=== PATIENT | male | born 1990 | race Caucasian/White ===

== ENCOUNTER 2023-10-06 13:13 | Emergency (ER) | payer OTHER, SELFPAY ==
[2023-10-06 13:17] VITALS: BP 160/119; PULSE 124; TEMP 36.4; O2SAT 99; BMI 32.8
--- NOTE | 2023-10-06 13:22 | PC.NURSE ---
Patient reports spilling hydrolic oil on left forearm. No pain or redness to area, skin pink and warm and intact. Patient reports I just wanted to make sure it didn't get in my pores .
--- NOTE | 2023-10-06 13:24 | XR_ITS ---
The [address] [address] Patient Name: SOPHIA HOWELL MRN: [id number] date: 1990 Sex: M Assigned Patient Location: ER Current Patient Location: ED.MAIN Accession/Order Number: [id number] Exam Date: 10/06/2023 13:45 Report Date: 10/06/2023 15:12 At the request of: ENRIQUE LONDON Procedure: XR forearm LT 2V EXAM: XR forearm LT 2V HISTORY: Direct trauma with hydraulic fluid COMPARISON: None. TECHNIQUE: 2 views of the left forearm. FINDINGS: The bones are intact. The alignment is anatomic. The soft tissues are grossly unremarkable. XR/XR forearm LT 2V IMPRESSION: No acute osseous abnormality. Electronically authenticated by: MATTHEW DAMON Date: 10/06/2023 15:12
--- NOTE | 2023-10-06 13:31 | ED.GENADUL1 ---
HPI HPI - General Adult General Chief complaint: Skin/Abscess/Foreign Body Stated complaint: LT ARM INJURY Time Seen by Provider: 10/06/23 13:14 History of Present Illness HPI narrative: 33-year-old male presents to the emergency department for a chief complaint of injury to the left arm. He was at work this morning and he was working on a hydraulic line and the hydraulic fluid came out under pressure and hit him in his left forearm. He is right-handed. He has no weakness or numbness but he has some pain and some slight swelling to that area. There was no metallic or hard object that hit his arm, it was just the hydraulic fluid. None got on his face. Related Data Home Medications ?Medication ?Instructions ?Recorded ?Confirmed No Known Home Medications 10/06/23 10/06/23 Allergies Allergy/AdvReac Type Severity Reaction Status Date / Time No Known Drug Allergies Allergy Verified 10/06/23 13:17 Opioid HPI Opioid Management Most Recent Opioid Data: No Data to Display Review of Systems ROS Narrative A ten point review of systems is negative except as noted above. Exam Narrative Exam Narrative: Nurses note and vital signs reviewed and patient is not hypoxic. General: The patient appears well and in no apparent distress. Patient is resting comfortably sitting in a chair. Skin: Warm, dry, no pallor noted. There is some mild erythema and percent have some very slight swelling at the left forearm proximally on the extensor side. The skin is completely intact, no break in the skin. Head: Normocephalic, atraumatic Eye: Normal conjunctiva, no drainage Ears, Nose, Mouth, and Throat: oral mucosa is moist. Nares patent. Cardiovascular: Regular Rate and Rhythm Respiratory: Patient is in no distress, no accessory muscle use, lungs are clear to auscultation, no wheezing, rales or rhonchi Back: non-tender GI: Soft and nontender Musculoskeletal: Left shoulder, left elbow, and left wrist have full range of motion. Radial pulse 2+. Fingers have full range of motion. Neurological: A&O, normal speech Psychiatric: Cooperative Constitutional Vital Signs, click to edit/add: Last Vital Signs Temp 97.6 F 10/06/23 13:17 Pulse 114 H 10/06/23 13:57 Resp 18 10/06/23 13:57 BP 158/94 H 10/06/23 13:57 Pulse Ox 98 10/06/23 13:57 O2 Del Method Room Air 10/06/23 13:17 Course Vital Signs Vital signs: Vital Signs Temperature 97.6 F 10/06/23 13:17 Pulse Rate 124 H 10/06/23 13:17 Respiratory Rate 18 10/06/23 13:17 Blood Pressure 160/119 H 10/06/23 13:17 Pulse Oximetry 99 10/06/23 13:17 Oxygen Delivery Method Room Air 10/06/23 13:17 Temperature 97.6 F 10/06/23 13:17 Pulse Rate 114 H 10/06/23 13:57 Respiratory Rate 18 10/06/23 13:57 Blood Pressure 158/94 H 10/06/23 13:57 Pulse Oximetry 98 10/06/23 13:57 Oxygen Delivery Method Room Air 10/06/23 13:17 Medical Decision Making MDM Narrative Medical decision making narrative: X-rays are negative. Physical examination shows intact skin. I have no clinical suspicion of subcutaneous chemical exposure. He was reassured. Treatment diagnosis and follow-up were discussed thoroughly. Differential Diagnosis Differential Diagnosis: Contusion, chemical dermatitis Imaging Data Forearm x-ray: Radiologist's impression: ITS Impressions Forearm X-Ray 10/06/23 13:24 IMPRESSION: No acute osseous abnormality. Electronically authenticated by: MATTHEW DAMON Date: 10/06/2023 15:12 Discharge Plan Discharge Stand Alone Forms: Portal Instructions Chief Complaint: Skin/Abscess/Foreign Body Clinical Impression: Chemical exposure Patient Disposition: Home, Self-Care Time of Disposition Decision: 15:23 Condition: Good Mode of Transportation: Private Vehicle Prescriptions / Home Meds: No Action No Known Home Medications Print Language: Cypriot Instructions: Dermatitis (ED) Referrals: Physician,Non-Staff, MD [Physician] - 1 week
[2023-10-06 13:57] VITALS: BP 158/94; PULSE 114; O2SAT 98
== END 2023-10-06 15:34 | disposition home or self-care (01) ==
PROVIDERS: Emergency Provider Emergency Medicine; Family Provider Family Medicine; PCP Family Medicine
DX: Z77.098 Contact with and (suspected) exposure to other hazardous, chiefly nonmedicinal, chemicals (principal)
CPT/HCPCS: 73090; 99283

== ENCOUNTER 2024-02-05 13:28 | Outpatient (OUT) | payer BC, SELFPAY ==
--- OUTSIDE RECORDS SUMMARY | 2024-02-05 13:36 | XMS_ITS | CCD ---
Author Organization [facility] Care Team Providers Care Vision Rehabilitation Therapist Name Role Phone DMITRIY ARANGO Primary Care Physician Ahsan PATEL Attending Unavailable Ahsan PATEL Admitting Unavailable DMITRIY ARANGO Attending Unavailable DMITRIY ARANGO Referring Unavailable DMITRIY ARANGO Attending Unavailable DMITRIY ARANGO Referring Unavailable Dmitriy Arango DO Primary Care Provider Dmitriy Arango DO Unavailable [phone] Lydia Leung Attending Unavailable Unavailable Unavailable Unavailable Medications Current Medications Medication Drug Class(es) Dates Sig (Normalized) Sig (Original) cephalexin 500 mg oral capsule (3 sources) Cephalosporin Antibacterial Start: 12-26-2021 Keflex 500 mg Cap See Instructions, Take 1 tablet 1 day prior to procedure, and then 1 tab day of procedure after procedure, # 10 tab(s), Refills(s) 0, Pharmacy: [facility] [id number], 182, cm, 12/26/21 10:20:00 EDT, Height/Length Dosing, 107.3, kg, 12/26/21 10:20:0... Start Date: 12/26/21 Status: Ordered lisinopril 20 mg oral tablet (7 sources) Angiotensin Converting Enzyme Inhibitor Start: 01-31-2024 take 1 tablet by mouth once daily lisinopril 20 mg Tab = 1 tab(s), Oral, Daily, Refills(s) 0 Start Date: 01/31/24 Status: Ordered Start: 12-26-2021 take 1 tablet by deisy th once daily lisinopril 20 mg Tab 20 mg = 1 tab(s), Oral, Daily Start Date: 12/26/21 Status: Ordered Start: 02-12-2018 take 20 mg by mouth once daily Lisinopril Active 20 MG Oral Daily February 12, 2018 12:56pm Completed/Discontinued Medications Medication Drug Class(es) Dates Sig (Normalized) Sig (Original) permethrin 50 mg/ml topical cream (2 sources) Pyrethroid Start: 02-08-2023 End: 01-15-2024 permethrin (Elimite) 5 % cream Indications: Rash Put on at night wash off in the morning 60 g 02/08/2023 01/15/2024 Discontinued (Therapy completed) Problems Problem Classification Problem Date Documented Da te Episodic/Chronic Adjustment disorders (2 sources) Stress; Translations: [Reaction to severe stress, unspecified] Onset: 02-08-2023 02-08-2023 Chronic Contraceptive and procreative management (9 sources) Sterilization requested; Translations: [Encounter for sterilization] Onset: 12-26-2021 Episodic E Codes: Natural/environment (2 sources) Tick bite; Translations: [Bitten or stung by nonvenomous insect and other nonvenomous arthropods, sequela] 01-15-2024 Episodic Essential hypertension (10 sources) Hypertensive disorder; Translations: [Essential hypertension] Onset: 08-08-2022 12-26-2021 Chronic Gastrointestinal hemorrhage (3 sources) Hematochezia; Translations: [ melena] Onset: 01-15-2024 01-15-2024 Episodic Open wounds of extremities (1 source) Laceration of thigh; Translations: [Laceration without foreign body, right thigh, initial encounter] Onset: 05-29-2021 Episodic Other male genital disorders (2 sources) Pain in testicle; Translations: [Left testicular pain] Onset: 09-26-2022 Episodic Other male genital disorders (5 sources) Pain of left testicle; Translations: [Left testicular pain] Onset: 02-08-2023 09-26-2022 Episodic Other nutritional; endocrine; and metabolic disorders (2 sources) Body mass index 30+ - obesity; Translations: [Obesity, unspecified] 01-15-2024 Chronic Other upper respiratory disease (2 sources) Seasonal allergy; Translations: [Other seasonal allergic rhinitis] Onset: 08-08-2022 08-08-2022 Chronic Results Test Name Value Interpretation Reference Range Facility Ambulatory Visit Summaryon 1 04-01-2023 Ambulatory Visit Summary Ambulatory Visit Summary DAVID PELLETIER :1990 Visit Date:01/31/2024 Ambulatory Visit Instructions Your Diagnosis Left testicular pain Testicular pain Tests Performed US Scrotum (Contents) -- Results Pending -- Please visit your patient portal for your results or contact your primary care physician. Your Care Team Attending Physician - Lydia Ho Primary Care Physician - DMITRIY ARANGO DO This Is Your Medications List Contact prescribing physician if questions or concerns lisinopril (lisinopril 20 mg Tab) Procedures Performed Vasectomy (04/27/2022), Colonoscopy. Discharge Vitals Heart Rate (Peripheral) 72 Blood Pressure 146/82 Height 182 cm Height 72 in Weight 107.3 kg Weight 236.556 lb BMI 32.39 Medications What How Much When Instructions Unchanged lisinopril (lisinopril 20 mg Tab) 1 Tablets By Mouth Every day Contact prescribing physician if questions or concerns Allergies No Known Allergies Problems Ongoing - Any problem that you are currently receiving treatment for. Encounter for vasectomy Hypertension Left testicular pain Vasectomy status Patient Survey You may receive a survey via text or e-mail asking about your office visit. Please share your experience with us by completing your survey. We appreciate your feedback and thank you for choosing us for your care. [facility] Urology Office/Clinic Noteon 01-31-2024 Urology Office/Clinic Note Urology Office/Clinic Note HPI Staff David is a 33 yo male [facility] pt here today due to continuing testicular pain. Was last seen IO by [facility] on 09/26/22 due to Lt sided testicular pain PO a Vasectomy from 04/27/22 by [facility]. pt also having pain on right side today Did call pt to see if he wanted to have Scrotal US done and have this appt rs as the US was recommended in previous office note, pt states that he would like to keep his appt. Pt asked what the Scrotal Us could possibly find, advised him that it could tell us if there was any fluid build up, varicoceles, hydroceles, or anything like that. Pt stated that when he has the pain he can feel a kind of bump and that he thinks it may be a cyst. Pt stated that he would like to have an exam done to determine if he truly needs to have the Scrotal US or not. Dysuria: _no Incomplete bladder emptying: _no Hematuria: _no Frequency: _no Urgency: _no Nocturia: _no Stream: _normal Leaking: _no Post void dripping: _no Wearing pads/ Depends: _no Urge incontinence: _no Stress incontinence: _no Incontinence without Sensory Awareness: _no Abdominal pain: _no Flank pain: _no Sexual complaints: _ History of Present Illness Staff HPI reviewed and agree. Review of Systems PHQ Score Initial Depression Screen Score: 0 SCORE no fever, chills, malaise, myalgia. no rash/lesions. no chest pain, palpitations, or SOB. no abdominal pain, nausea, vomiting. no unilateral calf swelling, redness, pain Physical Exam Vitals & Measurements HR: 72(Peripheral) BP: 146/82 HT: 72 in HT: 182 cm WT: 107.3 kg WT: 236.556 lb BMI: 32.39 Genitourinary: abnormal scrotum, L cyst-like nodule noted at inferior end of scrotum normal testes, normal urethra, normal epididymis, normal vas deferens/spermatic cord. Flank Pain: none. Penis: normal shaft, normal glans. Assessment/Plan [facility] pt. 1. Left testicular pain (N50.812: Left testicular pain) S/P Vasectomy 04/27/[address] Luna 12/17/23 semen analysis shows no sperm UA today negative for blood or infection Pt states he had left testicular pain that began while he was working. Pt was seen for the same issue September 2022. Pt denies any specific injury/movement when he noticed pain. Pt also reports a hard nodule in his L scrotum. Pt denies urination or ejaculation concerns. Denies gross hematuria. Physical exam today as noted above, no tenderness noted. Advised pt to take anti-inflammatory medications and try taking baths. Discussed completing scrotal US with patient, pt agreeable. Pt knows to call our office for any severe pain, hematuria, blood in semen, fevers or difficulty urinating. -Scrotal US soon at [facility], will call patient with results -NSAIDs, baths, frequent ejaculations -If scrotal US normal, f/u PRN Ordered: E&M of Est. Patient Low 20-29 Min [id number] Urnls Dip Stick Auto w/o Microscopy POC [id number] Follow-up With When Contact Information Lydia Ho, URL Only if needed Additional Instructions: Patient Education Testicular Self-Exam Problem List/Past Medical History Ongoing Encounter for vasectomy Hypertension Left testicular pain Vasectomy status Historical No qualifying data Procedure/Surgical History Vasectomy (04/27/2022), Colonoscopy. Medications lisinopril 20 mg Tab, 1 tab(s), Oral, Daily Allergies No Known Allergies Social History Alcohol Current. Beer. 3-5 times per week., 01/31/2024 Substance Abuse Never., 01/31/2024 Tobacco Former smoker, quit more than 30 days ago Tobacco Use:., 01/31/2024 Family History Hypertension: Grandparent. Immunizations Vaccine Date Status Comments SARS-CoV-2 mRNA (totysonnameran 5y-11y) vac - Not Given Patient Refuses diphtheria/pertussis , acel/tetanus adult 05/09/2019 Recorded measles/mumps/rubell a virus vaccine 10/30/2002 Recorded hepatitis B pediatric vaccine 10/30/2002 Recorded poliovirus vaccine, inactivated 03/31/1992 Recorded measles/mumps/rubell a virus vaccine 03/31/1992 Recorded Hib, unspecified formulation 03/31/1992 Recorded Lab Results Ambulatory Point of Care Results Bilirubin Urine Dipstick: Negative (01/31/24 15:10:00) Blood Urine Dipstick: Negative (01/31/24 15:10:00) Glucose Urine Dipstick: Negative (01/31/24 15:10:00) Ketones Urine Dipstick: Negative (01/31/24 15:10:00) Leukocytes Urine Dipstick: Negative (01/31/24 15:10:00) Nitrite Urine Dipstick: Negative (01/31/24 15:10:00) Specific [place] Urine Dipstick: 1.025 (01/31/24 15:10:00) Urine Appearance Urine Dipstick: Clear (01/31/24 15:10:00) Urine Color Urine Dipstick: Yellow (01/31/24 15:10:00) Urobilinogen Urine Dipstick: Normal 0.2-1 EU/dl (01/31/24 15:10:00) pH Urine Dipstick: 6.5 (01/31/24 15:10:00) Normal [facility] Comment on above: Result Comment: Elec tronically Signed By: Lydia Ho.brian\Date and Time Signed: 01/31/24 15:23 EST Semen Analysis PostVason Odalis/Transport Prob No Problems Normal Fish er [facility] Comment on above: Performed By: #### 1 [id number] #### [facility] [address] [id number] Collect. Meth Masturbation Normal [facility] Comment on above: Performed By: #### 1 [id number] #### [facility] [address] [id number] Days Abstained See comment Invalid Interpretation Code 2-5 [facility] Comment on above: Result Comment: Negra ent wrote year plus on days of abstinence section Performed By: #### 1 [id number] #### [facility] [address] [place] [address] Post Vas Screen No Sperm Seen Normal <=0 [facility] Comment on above: Result Comment: A Co ncentration Technique is used to confirm any semen which is azospermic (no sperm seen). Performed By: #### 1 [id number] #### [facility] [address] [place] [address] Spec. Container Steril Container Normal [facility] Comment on above: Performed By: #### 1 [id number] #### [facility] [address] [place] [address] Spec. Temp 22 DegC Normal 20-37 [facility] Comment on above: Performed By: #### 1 [id number] #### [facility] [address] [place] [address] Sperm Morphon 12-31-2023 Sperm Morph No sperms identified (centrifuge concentration technique performed). Invalid Interpretation Code [facility] Comment on above: Order Comment: Order Added by Discern Expert. Performed By: #### 2 [id number] #### [facility] [address] [place] [address] Sperm Morph Sperm Morph No sperms identified (centrifuge concentration technique performed). Invalid Interpretation Code [facility] Comment on above: Other Comment: Order Added by Discern Expert. Complete Blood Count with Au to Diffon 06-22-2021 Basophils (Bld) [#/Vol] 0.03 10*3/uL Normal 0.00-0.20 [facility] Comment on above: Performed By: #### L IPD, CMP, CBCAD #### [facility] [address], [place] [id number] Basophils/100 WBC (Bld) 0.4 % Normal [facility] Comment on above: Performed By: #### L IPD, CMP, CBCAD #### [facility] [address], [place] [id number] Eosinophils (Bld) [#/Vol] 0.14 10*3/uL Normal 0.02-0.50 [facility] Comment on above: Performed By: #### L IPD, CMP, CBCAD #### [facility] [address], [place] [id number] Eosinophils/100 WBC (Bld) 1.8 % Normal [facility] Comment on above: Performed By: #### L IPD, CMP, CBCAD #### [facility] [address], [place] [id number] Erythrocyte distribution width (RBC) [Ratio] 12.5 % Normal 11.0-15.0 [facility] Comment on above: Performed By: #### L IPD, CMP, CBCAD #### [facility] [address], [place] [id number] Hematocrit (Bld) [Volume fraction] 43.6 % Normal 38.5-50.0 [facility] Comment on above: Performed By: #### L IPD, CMP, CBCAD #### [facility] [address], [place] [id number] Hemoglobin (Bld) [Mass/Vol] 14.8 g/dL Normal 13.0-17.1 [facility] Comment on above: Performed By: #### L IPD, CMP, CBCAD #### [facility] [address], [place] [id number] Lymphocytes (Bld) [#/Vol] 2.6 10*3/uL Normal 0.9-3.9 [facility] Comment on above: Performed By: #### L IPD, CMP, CBCAD #### [facility] [address], [place] [id number] Lymphocytes/100 WBC (Bld) 33.8 % Normal [facility] Comment on above: Performed By: #### L IPD, CMP, CBCAD #### [facility] [address], [place] [id number] MCH (RBC) [Entitic mass] 30.6 pg Normal 27.0-33.0 [facility] Comment on above: Performed By: #### L IPD, CMP, CBCAD #### [facility] [address], [place] [id number] MCHC (RBC) [Mass/Vol] 33.9 g/dL Normal 32.0-36.0 [facility] Comment on above: Performed By: #### L IPD, CMP, CBCAD #### [facility] [address], [place] [id number] MCV (RBC) [Entitic vol] 90 fL Normal 80-100 [facility] Comment on above: Performed By: #### L IPD, CMP, CBCAD #### [facility] [address], [place] [id number] Monocytes (Bld) [#/Vol] 0.3 10*3/uL Normal 0.2-0.9 [facility] Comment on above: Performed By: #### L IPD, CMP, CBCAD #### [facility] [address], [place] [id number] Monocytes/100 WBC (Bld) 4.3 % Normal [facility] Comment on above: Performed By: #### L IPD, CMP, CBCAD #### [facility] [address], [place] [id number] Neutrophils (Bld) [#/Vol] 4.4 10*3/uL Normal 1.5-7.8 [facility] Comment on above: Performed By: #### L IPD, CMP, CBCAD #### [facility] [address], [place] [id number] Neutrophils/100 WBC (Bld) 58.4 % Normal [facility] Comment on above: Performed By: #### L IPD, CMP, CBCAD #### [facility] [address], [place] [id number] Platelet mean volume (Bld) [Entitic vol] 8.50 fL Normal 7.50-12.50 [facility] Comment on above: Performed By: #### L IPD, CMP, CBCAD #### [facility] [address], [place] [id number] Platelets (Bld) [#/Vol] 318 10*3/uL Normal 140-400 [facility] Comment on above: Performed By: #### L IPD, CMP, CBCAD #### [facility] [address], [place] [id number] RBC (Bld) [#/Vol] 4.83 10*6/uL Normal 4.20-5.80 [facility] Comment on above: Performed By: #### L IPD, CMP, CBCAD #### [facility] [address], [place] [id number] RDW-SD 41.1 fL Normal 37.0-50.0 [facility] Comment on above: Performed By: #### L IPD, CMP, CBCAD #### [facility] [address], [place] [id number] WBC (Bld) [#/Vol] 7.6 10*3/uL Normal 3.8-11.0 [facility] Comment on above: Performed By: #### L IPD, CMP, CBCAD #### [facility] [address], [place] [id number] Comprehensive Metabolic Pane joann 06-22-2021 Albumin [Mass/Vol] 4.9 g/dL Normal 3.6-5.1 [facility] Comment on above: Performed By: #### L IPD, CMP, CBCAD #### [facility] [address], [place] [id number] Albumin/Globulin [Mass ratio] 1.9 {ratio} Normal 1.0-2.5 [facility] Comment on above: Performed By: #### L IPD, CMP, CBCAD #### [facility] [address] [facility] [place] [id number] ALP [Catalytic activity/Vol] 89 U/L Normal 40-129 [facility] Comment on above: Performed By: #### L IPD, CMP, CBCAD #### [facility] [address] [facility] [place] [id number] ALT [Catalytic activity/Vol] 57 U/L High 9-46 [facility] Comment on above: Result Comment: 02/09 Female reference range changed. Performed By: #### L IPD, CMP, CBCAD #### [facility] [address] [facility] [place] [id number] Anion gap [Moles/Vol] 18 mmol/L Normal 12-20 [facility] Comment on above: Result Comment: Effe ctive 03/17/2019 reference range changed. Performed By: #### L IPD, CMP, CBCAD #### [facility] [address], [place] [id number] AST [Catalytic activity/Vol] 33 U/L Normal 10-40 [facility] Comment on above: Performed By: #### L IPD, CMP, CBCAD #### [facility] [address], [place] [id number] Bilirubin [Mass/Vol] 0.54 mg/dL Normal 0.30-1.20 [facility] Comment on above: Performed By: #### L IPD, CMP, CBCAD #### [facility] [address], [place] [id number] BUN/CREA 15 Ratio Normal 6-22 [facility] Comment on above: Performed By: #### L IPD, CMP, CBCAD #### [facility] [address] [facility] [place] [id number] Calcium [Mass/Vol] 9.8 mg/dL Normal 8.6-10.2 [facility] Comment on above: Performed By: #### L IPD, CMP, CBCAD #### [facility] [address] [facility] [place] [id number] Chloride [Moles/Vol] 102 mmol/L Normal 98-107 [facility] Comment on above: Performed By: #### L IPD, CMP, CBCAD #### [facility] [address], [place] [id number] CO2 [Moles/Vol] 22 mmol/L Normal 20-31 [facility] Comment on above: Performed By: #### L IPD, CMP, CBCAD #### [facility] [address], [place] [id number] Creatinine [Mass/Vol] 0.9 mg/dL Normal 0.7-1.4 [facility] Comment on above: Performed By: #### L IPD, CMP, CBCAD #### [facility] [address], [place] [id number] eGFRAA 124 mL/min/1.73m2 Normal >60 [facility] Comment on above: Performed By: #### L IPD, CMP, CBCAD #### [facility] [address], [place] [id number] eGFRNAA 102 mL/min/1.73m2 Normal >60 [facility] Comment on above: Performed By: #### L LYUBOV CMP, CBCAD #### [facility] [address], [place] [id number] Globulin (S) [Mass/Vol] 2.6 g/dL Normal 1.9-3.7 [facility] Comment on above: Performed By: #### L IPD, CMP, CBCAD #### [facility] [address], [place] [id number] Glucose [Mass/Vol] 92 mg/dL Normal 65-99 [facility] Comment on above: Result Comment: For FASTING Glucose --- ADA reference ranges: Normal 65-99 mg/dl Prediabetes 100-125 Diabetes >/= 126 Performed By: #### L IPD, CMP, CBCAD #### [facility] [address], [place] [id number] Potassium [Moles/Vol] 4.3 mmol/L Normal 3.5-5.5 [facility] Comment on above: Performed By: #### L IPD, CMP, CBCAD #### [facility] [address] [facility] [place] [id number] Protein [Mass/Vol] 7.5 g/dL Normal 6.1-8.1 [facility] [place] [facility] Comment on above: Performed By: #### L IPD, CMP, CBCAD #### [facility] [address], [place] [id number] Sodium [Moles/Vol] 137 mmol/L Normal 135-146 [facility] [place] [facility] Comment on above: Performed By: #### L IPD, CMP, CBCAD #### [facility] [address], [place] [id number] Urea nitrogen [Mass/Vol] 13 mg/dL Normal 7-25 [facility] Comment on above: Performed By: #### L IPD, CMP, CBCAD #### [facility] [address], [place] [id number] Lipid Panelon 06-22-2021 Cholesterol [Mass/Vol] 191 mg/dL Normal 125-200 [facility] Comment on above: Result Comment: Low risk < 200mg/dL Borderline risk 201-239 mg/dl High risk > or equal to 240 Performed By: #### L IPD, CMP, CBCAD #### [facility] [address], [place] [id number] Cholesterol in HDL [Mass/Vol] 35 mg/dL Low >40 [facility] Comment on above: Result Comment: High Cardiovascular Risk HDL <40 mg/dL Low Cardiovascular Risk HDL > or equal to 60 mg/dl Performed By: #### L IPD, CMP, CBCAD #### [facility] [address], [place] [id number] Cholesterol in LDL [Mass/Vol] 126 mg/dL Normal [facility] Comment on above: Result Comment: LDL ATP III CLASSIFICATION LDL less than 100 mg/dl Optimal LDL 100-129 mg/dl Near or above optimal LDL 130-159 Borderline high LDL 160-189 High LDL greater than 189 mg/dl Very High Performed By: #### L IPD, CMP, CBCAD #### [facility] [address], [place] [id number] Cholesterol in VLDL [Mass/Vol] 30 mg/dL Normal [facility] Comment on above: Performed By: #### L IPD, CMP, CBCAD #### [facility] [address], [place] [id number] Cholesterol.total/C holesterol in HDL [Mass ratio] 5 {ratio} Normal [facility] Comment on above: Performed By: #### L IPD, CMP, CBCAD #### [facility] [address], [place] [id number] Triglyceride [Mass/Vol] 149 mg/dL Normal 30-150 [facility] Comment on above: Result Comment: TRIG ATPIII CLASSIFICATIONS TRIG less than 150 mg/dl Normal TRIG 150-199 mg/dl Borderline High TRIG 200-500 mg/dl High TRIG greather than 500 mg/dl Very High Performed By: #### L IPD, CMP, CBCAD #### [facility] [address], [place] [id number] Microalbumin (with Creat)on 06-22-2021 mALB <1.2 Low [facility] Comment on above: Result Comment: Unab le to calculate mALB/Crea ratio, mALB is <1.2 mg/dL mALB reference range not established. Performed By: #### m ALBC #### [facility] [address], [place] [id number] UCREA 62 mg/dL Normal 39-259 [facility] Comment on above: Performed By: #### m ALBC #### [facility] [address], [place] [id number] Coding Summaryon 11-29-2018 Coding Summary CODING DATE: 11/29/2018 [facility] STATUS: Home PAYOR: Workers Compensation ADMIT DX: REASON FOR VISIT DX: T23.152D Burn of first degree of left palm, subsequent encounter FINAL DX: PRINCIPAL: T23.152D Burn of first degree of left palm, subsequent encounter SECONDARY: PYMT PROC APC STAT DESCRIPTION DOCTOR NAME DATE NOTE: The code number assigned matches the documented diagnosis and / or procedure in the patient's chart. However, the narrative phrase printed from the coding software may appear abbreviated, or result in slightly different terminology. Coded By: Maren Lizama Date Saved: 11/29/2018 08:39 am [facility] Discharge Instructionson Discharge Instructions [id number] #[email or web address] [facility] ED Clinical Summaryon 2018 ED Clinical Summary [facility] ? Urgent Care [address] [place] [address] Clinical Summary PERSON INFORMATION Name: DAVID PELLETIER Age: 28 Years Sex: MALE : 1990 MRN: Acct#: Visit Reason: Screening - general; BWC FOLLOW-UP/LEFT HAND PAINY Arrival: 11/27/2018 12:45:57 Discharge: 11/27/2018 13:06:00 LOS: 000 00:21 Check In: 11/27/2018 12:45:57 Checkout: 11/27/2018 13:06:00 Address: [address] [place] [id number] PCP: DMITRIY ARANGO PROVIDER INFORMATION Provider Role Assigned Unassigned Noah Alvarado PA-C ED PA 11/27/2018 12:50:12 Blanka Pang [employer] [facility] Nurse 11/27/2018 12:51:12 VITALS INFORMATION Vital Sign Triage Latest Temperature Tympanic Temperature Temporal Artery Pulse Rate O2 Sat Respiratory Rate Blood Pressure /80 mmHg /80 mmHg MEDICAL INFORMATION Medications Given: Allergy Information: No known allergies PHYSICIAN DOCUMENTATION DISCHARGE INFORMATION: Discharge Disposition: Home Discharge Location: Home PATIENT EDUCATION INFORMATION Instructions: Follow-Up: With: Address: When: Return to this practice , only if needed DIAGNOSIS: Superficial burn of palm of left hand Patient Understands: Yes - Patient/family/careg iver verbalizes understanding of instructions given Comment: Normal [facility] ED Note - Physicianon 2018 ED Note - Physician Patient: DAVID PELLETIER Age: 28 years Sex: MALE : 1990 Associated Diagnoses: Superficial burn of palm of left hand Author: Noah Alvarado PA-C History of Present Illness OCCUPATIONAL HEALTH FOLLOW-UP Date of injury: 11/14/2018 Claim #: [id number] Employer: [employer] Mechanism of Injury: Diagnosis: Burn, Left hand This is a 28 year old here today in follow-up for his work related injury. 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 He was seen here shortly after it had happened. Td was up to date. He was treated with Silvadene cream. 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 It is healing as expected. He still had an intact blister to his palm last week, today there is still skin over it, but blister is not fluid filled, healing without signs of infection. The finger tips are completely healed. No fevers, chills or malaise. No other skin rashes or lesions. No joint pains or myalgias. No numbness, tingling or weakness. There are no other associated symptoms. Nothing makes the symptoms better or worse. Symptoms are described as sudden onset, moderate in nature and persisting. Health Status Allergies: Allergic Reactions (Selected) No known allergies. Medications: (Selected) Prescriptions Prescribed Silvadene 1% topical cream: 1 jared, TOP, BID, Apply to left palm., 50 gm, 0 Refill(s) Documented Medications Documented lisinopril 20 mg oral tablet: 20 mg = 1 tab(s), PO, Daily, 0 Refill(s). Past Medical/ Family/ Social History Medical history: No active or resolved past medical history items have been selected or recorded.. Surgical history: No active procedure history items have been selected or recorded.. Family history: No family history items have been selected or recorded.. Social history: Social & Psychosocial Habits Substance Abuse 11/14/2018 Substance use: Never Tobacco 11/19/2018 Number used per day: States only occassionally . Problem list: No qualifying data available . Physical Examination Vital Signs Vital Signs 11/27/2018 12:45 EDT Temperature Oral 36.4 DegC Apical Heart Rate 80 bpm Respiratory Rate 16 br/min Systolic Blood Pressure 120 mmHg Diastolic Blood Pressure 80 mmHg . GENERAL: Awake, alert and oriented to person, place and situation. Well nourished, well developed, non toxic, NAD. EXTREMITIES: No bony TTP, no cyanosis, clubbing or edema. Good muscle tone, full ROM without difficulty. Brisk cap refill distally, radial pulses 2+ bilaterally. SKIN: There is skin overlying the former blister to his mid palm on the left, no further erythema to the finger tips, with otherwise normal inspection, no visualized rash. NEUROLOGIC: Light touch sensation in tact, strength 5/5 in bilateral upper extremities. Normal mentation. No focal neurological deficits appreciated. Medical Decision Making Burn healed, may return to full duty work. Return with new, or worsening symptoms, or symptoms failing to improve as expected and the patient voiced their understanding. Questions answered. Follow-up here only as needed. Impression and Plan Diagnosis Superficial burn of palm of left hand ([id number] T23.152A, Discharge, Medical) Plan Condition: Stable. Disposition: Discharged: Time 11/27/2018 13:03:00, to home. Follow up with: ; Return to this practice , only if needed. Counseled: Patient, Regarding diagnosis, Regarding treatment plan, Patient indicated understanding of instructions. [Electronically Signed on: 11/27/2018 13:12 EDT] Noah Alvarado PA-C [Verified on: 11/27/2018 13:12 EDT] Noah Alvarado PA-C Normal [facility] ED Patient Summaryon 019 ED Patient Summary [facility] ? Urgent Care [address] [place] [address] PATIENT DISCHARGE INSTRUCTIONS Patient Information Name: DAVID PELLETIER Age: 28 Years Date of : 1990 Reason For Visit: Screening - general; [facility] FOLLOW-UP/LEFT HAND PAINY Arrival Time: 11/27/2018 12:45:57 Primary Care Physician: DMITRIY ARANGO Attending Physician: Noah Alvarado PA-C Comment: Patient Education With: Address: When: Return to this practice , only if needed Medication Information: The exam and treatment you received today in the [facility] Emergency Department were for an urgent problem and are not intended as complete care. It is important for you to follow up with a doctor, nurse practitioner, or physician?s retail administrative assistant for ongoing care. If your symptoms become worse or you do not improve as expected and you are unable to reach your usual health care provider, you should return to the Emergency Department, we are available 24 hours a day. For those patients who have received Radiology results, the interpretation of your X-ray as given to you by our Emergency Department physician is only a preliminary report. The Radiologist will review your films and if there is a change in the diagnosis you will be notified by phone. Please make sure you have provided a working phone number so we can reach you if necessary. In the event that you had a lab culture while you were a patient in the Emergency Department, you will be notified by phone if there is a need to change your antibiotic. Please make sure you have provided a working phone number so we can reach you if necessary. [facility] Emergency Department has provided you with a complete list of medications post discharge. Please inform your hall supervisor/provider of your visit and for further instruction on these medications. Any specific questions regarding your chronic medications and dosages should be discussed with your primary care physician(s) and/or pharmacist. Medications to Continue That Have Not Changed Other Medications lisinopril (lisinopril 20 mg oral tablet) 1 tab(s) Oral every day. silver sulfADIAZINE topical (Silvadene 1% topical cream) 1 jared Topical 2 times a day. Apply to left palm.. Refills: 0. Visit Information Visit Diagnosis: Diagnoses This Visit Screening - general ([id number]) Superficial burn of palm of left hand (T23.152A) If you received any narcotics, sedation, or any other medication that causes drowsiness for the next 24 hours, unless otherwise directed: ? Do not drive a car. ? Do not operate machinery such as power tools, lawn mowers, drills, sewing machines, or stoves ? Avoid alcoholic beverages and drugs for allergies, nerves, or sleep ? Do not make important personal or business decisions or sign any legal documents Reason for Visit: [facility] follow up left hand burn improving no blister is changing jobs Allergies: Substance Reaction Symptoms Type Comments No known allergies Drug Vital Signs: Vitals and Measurements this Visit (last charted value for your 11/27/2018 visit) Vital Signs This Visit Temperature Oral: 36.4 DegC Apical Heart Rate: 80 bpm Respiratory Rate: 16 br/min Systolic Blood Pressure: 120 mmHg Diastolic Blood Pressure: 80 mmHg Measurements This Visit Height: 182.88 cm Height/Length Dosin.880 cm Height/Length Estimated: 182.880 cm Weight: 94.8 kg Weight Dosin.800 kg Weight Estimated: 94.800 kg Body Mass Index: 28.34 kg/m2 Problems List: Problem Onset Comments No Problems found Major Tests and Procedures: The following procedures and tests were performed during your ED visit. Laboratory Radiology Cardiology Viruses or Bacteria What?s got you sick? Antibiotics only treat bacterial infections. Viral illnesses cannot be treated with antibiotics. When an antibiotic is not prescribed, ask your healthcare professional for tips on how to relieve symptoms and feel better. Usual Cause Illness Viruses Bacteria Antibiotic Needed Cold/Runny Nose NO Bronchitis/Chest Cold (in otherwise healthy children and adults) NO Whooping Cough Yes Flu NO Strep Throat Yes Sore Throat (except strep) NO Fluid in the middle ear (otitis media with effusion) NO Urinary Tract Infection Yes Antibiotics Aren?t Always the Answer www.cdc.gov/getsmart GET SMART Know When Antibiotics Work U.S. Department of Health and Human Services Centers for Disease Control and Prevention November 2013 [facility] Patient Handouton 11-27-2018 Patient Handout Patient Education Materials Follows: [facility] Urgent Care Rec[facility] 019 Urgent Care Record [facility] ? Urgent Care [address] [place] [address] PATIENT DISCHARGE INSTRUCTIONS Patient Information Name: DAVID PELLETIER Age: 28 Years Date of : 1990 Reason For Visit: Screening - general; [facility] FOLLOW-UP/LEFT HAND PAINY Arrival Time: 11/27/2018 12:45:57 Primary Care Physician: DMITRIY ARANGO Attending Physician: Noah Alvarado PA-C Comment: Visit Diagnosis: Diagnoses This Visit Screening - general ([id number]) Superficial burn of palm of left hand (T23.152A) If you received any narcotics, sedation, or any other medication that causes drowsiness for the next 24 hours, unless otherwise directed: ? Do not drive a car. ? Do not operate machinery such as power tools, lawn mowers, drills, sewing machines, or stoves ? Avoid alcoholic beverages and drugs for allergies, nerves, or sleep ? Do not make important personal or business decisions or sign any legal documents With: Address: When: Return to this practice , only if needed Medication Information: The exam and treatment you received today in the [facility] were for an urgent problem and are not intended as complete care. It is important for you to follow up with a doctor, nurse practitioner, or physician?s retail administrative assistant for ongoing care. If your symptoms become worse or you do not improve as expected and you are unable to reach your usual health care provider, you should return to the Emergency Department, we are available 24 hours a day. For those patients who have received Radiology results, the interpretation of your X-ray as given to you by our Urgent Care physician is only a preliminary report. The Radiologist will review your films and if there is a change in the diagnosis you will be notified by phone. Please make sure you have provided a working phone number so we can reach you if necessary. In the event that you had a lab culture while you were a patient in the Urgent Care, you will be notified by phone if there is a need to change your antibiotic. Please make sure you have provided a working phone number so we can reach you if necessary. [facility] has provided you with a complete list of medications post discharge. Please inform your hall supervisor/provider of your visit and for further instruction on these medications. Any specific questions regarding your chronic medications and dosages should be discussed with your primary care physician(s) and/or pharmacist. Medications to Continue That Have Not Changed Other Medications lisinopril (lisinopril 20 mg oral tablet) 1 tab(s) Oral every day. silver sulfADIAZINE topical (Silvadene 1% topical cream) 1 jared Topical 2 times a day. Apply to left palm.. Refills: 0. Visit Information Allergies: Substance Reaction Symptoms Type Comments No known allergies Drug Vital Signs: Vitals and Measurements this Visit (last charted value for your 11/27/2018 visit) Vital Signs This Visit Temperature Oral: 36.4 DegC Apical Heart Rate: 80 bpm Respiratory Rate: 16 br/min Systolic Blood Pressure: 120 mmHg Diastolic Blood Pressure: 80 mmHg Measurements This Visit Height: 182.88 cm Height/Length Dosin.880 cm Height/Length Estimated: 182.880 cm Weight: 94.8 kg Weight Dosin.800 kg Weight Estimated: 94.800 kg Body Mass Index: 28.34 kg/m2 Problems List: Problem Onset Comments No Problems found Patient Education Viruses or Bacteria What?s got you sick? Antibiotics only treat bacterial infections. Viral illnesses cannot be treated with antibiotics. When an antibiotic is not prescribed, ask your healthcare professional for tips on how to relieve symptoms and feel better. Usual Cause Illness Viruses Bacteria Antibiotic Needed Cold/Runny Nose NO Bronchitis/Chest Cold (in otherwise healthy children and adults) NO Whooping Cough Yes Flu NO Strep Throat Yes Sore Throat (except strep) NO Fluid in the middle ear (otitis media with effusion) NO Urinary Tract Infection Yes Antibiotics Aren?t Always the Answer www.cdc.gov/getsmart GET SMART Know When Antibiotics Work U.S. Department of Health and Human Services Centers for Disease Control and Prevention November 2013 [facility] Coding Summaryon 11-20-2018 Coding Summary CODING DATE: 11/20/2018 [facility] STATUS: Home PAYOR: Workers Compensation ADMIT DX: REASON FOR VISIT DX: T23.152D Burn of first degree of left palm, subsequent encounter FINAL DX: PRINCIPAL: T23.152D Burn of first degree of left palm, subsequent encounter SECONDARY: PYMT PROC APC STAT DESCRIPTION DOCTOR NAME DATE NOTE: The code number assigned matches the documented diagnosis and / or procedure in the patient's chart. However, the narrative phrase printed from the coding software may appear abbreviated, or result in slightly different terminology. Coded By: Maren Lizama Date Saved: 11/20/2018 09:33 am [facility] Discharge Instructionson Discharge Instructions [id number] [facility] ED Clinical Summaryon 2018 ED Clinical Summary [facility] ? Urgent Care [address] [place], [place] [id number] Clinical Summary PERSON INFORMATION Name: DAVID PELLETIER Age: 28 Years Sex: MALE : 1990 MRN: Acct#: Visit Reason: Medical screening exam; [facility] FOLLOW UP, LEFT HAND PAIN Arrival: 11/19/2018 12:57:00 Discharge: 11/19/2018 14:06:00 LOS: 000 01:09 Check In: 11/19/2018 12:57:00 Checkout: 11/19/2018 14:06:00 Address: [address] [place] [address] PCP: DMITRIY ARANGO PROVIDER INFORMATION Provider Role Assigned Unassigned Noah Alvarado PA-C ED PA 11/19/2018 13:00:09 Carmela RN, Melissa ED Nurse 11/19/2018 13:02:13 VITALS INFORMATION Vital Sign Triage Latest Temperature Tympanic Temperature Temporal Artery Pulse Rate O2 Sat 99 % 99 % Respiratory Rate Blood Pressure /86 mmHg /86 mmHg MEDICAL INFORMATION Medications Given: Allergy Information: No known allergies PHYSICIAN DOCUMENTATION DISCHARGE INFORMATION: Discharge Disposition: Home Discharge Location: Home PATIENT EDUCATION INFORMATION Instructions: Follow-Up: With: Address: When: Return to this practice Comments: Sunday, Nov 27 at 1 p.m. DIAGNOSIS: Superficial burn of palm of left hand Patient Understands: Yes - Patient/family/careg iver verbalizes understanding of instructions given Comment: [facility] ED Note - Physicianon 2018 ED Note - Physician Patient: DAVID PELLETIER Age: 28 years Sex: MALE : 1990 Associated Diagnoses: Superficial burn of palm of left hand Author: Noah Alvarado PA-C Basic Information Additional information: Chief Complaint from Nursing Triage Note : Chief Complaint 11/19/2018 12:57 EDT Chief Complaint [facility] Follow Up for Burn . History of Present Illness OCCUPATIONAL HEALTH FOLLOW-UP Date of injury: 11/14/2018 Claim #: [id number] Employer: [employer] Mechanism of Injury: Diagnosis: Burn, Left hand This is a 28 year old here today in follow-up for his work related injury. 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 He was seen here shortly after it had happened. Td was up to date. He was treated with Silvadene cream. 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 It is healing as expected. He still has an intact blister to his palm. There are some areas of redness that remain to the finger tips and the base of the fingers. No fevers, chills or malaise. No other skin rashes or lesions. No joint pains or myalgias. No numbness, tingling or weakness. There are no other associated symptoms. Nothing else makes the symptoms better or worse. Symptoms are described as sudden onset, moderate in nature and persisting. Health Status Allergies: Allergic Reactions (Selected) No known allergies. Medications: (Selected) Prescriptions Prescribed Silvadene 1% topical cream: 1 jared, TOP, BID, Apply to left palm., 50 gm, 0 Refill(s) Documented Medications Documented lisinopril 20 mg oral tablet: 20 mg = 1 tab(s), PO, Daily, 0 Refill(s). Past Medical/ Family/ Social History Medical history: No active or resolved past medical history items have been selected or recorded.. Surgical history: No active procedure history items have been selected or recorded.. Family history: No family history items have been selected or recorded.. Social history: Social & Psychosocial Habits Substance Abuse 11/14/2018 Substance use: Never Tobacco 11/19/2018 Number used per day: States only occassionally . Problem list: No qualifying data available . Physical Examination Vital Signs Vital Signs 11/19/2018 12:57 EDT Temperature Temporal 36.7 DegC Peripheral Pulse Rate 102 bpm HI Respiratory Rate 18 br/min Systolic Blood Pressure 138 mmHg Diastolic Blood Pressure 86 mmHg SpO2 99 % Oxygen Therapy Room air . Measurements 11/19/2018 12:57 EDT Height 182.88 cm Weight 94.8 kg Body Mass Index 28.34 kg/m2 . GENERAL: Awake, alert and oriented to person, place and situation. Well nourished, well developed, non toxic, NAD. CARDIOVASCULAR: Regular rate and rhythm. +S1 +S2. No murmurs or rubs. RESPIRATORY: Clear to auscultation bilaterally without rales, rhonchi or wheeze. EXTREMITIES: No bony TTP, no cyanosis, clubbing or edema. Good muscle tone, full ROM without difficulty. Brisk cap refill distally, radial pulses 2+ bilaterally. SKIN: There is an intact blister to the mid palm on the left, erythema to all four finger tips and bases of the index, middle and fourth fingers, with otherwise normal inspection, no visualized rash. NEUROLOGIC: Light touch sensation in tact, strength 5/5 in bilateral upper extremities. Normal mentation. No focal neurological deficits appreciated. Medical Decision Making Mi are healing as expected. Home with wound care instructions. Continue light duty work, using mostly only his left hand when able. Return with new, or worsening symptoms, or symptoms failing to improve as expected and the patient voiced their understanding. Questions answered. Follow-up here 11/27 with hopes of returning him to full duty work at that time. Impression and Plan Diagnosis Superficial burn of palm of left hand ([id number] T23.152A, Discharge, Medical) Plan Condition: Stable. Disposition: Discharged: Time 11/19/2018 13:49:00, to home. Follow up with: ; Return to this practice Nov 27 at 1 p.m.. Counseled: Patient, Regarding diagnosis, Regarding treatment plan, Patient indicated understanding of instructions. [Electronically Signed on: 11/19/2018 17:25 EDT] Noah Alvarado PA-C [Verified on: 11/19/2018 17:25 EDT] Noah Alvarado PA-C [facility] ED Note-Nursingon 11-19-2018 ED Note-Nursing Applied a 2x3 telfa dressing to blister on the left hand and secured with a 3 inch OLIVER Bandage that was wrapped around the complete left hand. Pt is educated on the s/sx of infection and he verbalized understanding. [facility] ED Patient Summaryon 019 ED Patient Summary [facility] ? Urgent Care [address] [place] [address] PATIENT DISCHARGE INSTRUCTIONS Patient Information Name: DAVID PELLETIER Age: 28 Years Date of : 1990 Reason For Visit: Medical screening exam; [facility] FOLLOW UP, LEFT HAND PAIN Arrival Time: 11/19/2018 12:57:00 Primary Care Physician: DMITRIY ARANGO Attending Physician: Noah Alvarado PA-C Comment: Patient Education With: Address: When: Return to this practice Comments: Nov 27 at 1 p.m. Medication Information: The exam and treatment you received today in the [facility] Emergency Department were for an urgent problem and are not intended as complete care. It is important for you to follow up with a doctor, nurse practitioner, or physician?s retail administrative assistant for ongoing care. If your symptoms become worse or you do not improve as expected and you are unable to reach your usual health care provider, you should return to the Emergency Department, we are available 24 hours a day. For those patients who have received Radiology results, the interpretation of your X-ray as given to you by our Emergency Department physician is only a preliminary report. The Radiologist will review your films and if there is a change in the diagnosis you will be notified by phone. Please make sure you have provided a working phone number so we can reach you if necessary. In the event that you had a lab culture while you were a patient in the Emergency Department, you will be notified by phone if there is a need to change your antibiotic. Please make sure you have provided a working phone number so we can reach you if necessary. [facility] Emergency Department has provided you with a complete list of medications post discharge. Please inform your hall supervisor/provider of your visit and for further instruction on these medications. Any specific questions regarding your chronic medications and dosages should be discussed with your primary care physician(s) and/or pharmacist. Medications That Were Updated - Follow Below Instructions Other Medications Updated: lisinopril (lisinopril 20 mg oral tablet) 1 tab(s) Oral every day. Medications to Continue That Have Not Changed Other Medications silver sulfADIAZINE topical (Silvadene 1% topical cream) 1 jared Topical 2 times a day. Apply to left palm.. Refills: 0. Visit Information Visit Diagnosis: Diagnoses This Visit Medical screening exam ([id number]) Superficial burn of palm of left hand (T23.152A) If you received any narcotics, sedation, or any other medication that causes drowsiness for the next 24 hours, unless otherwise directed: ? Do not drive a car. ? Do not operate machinery such as power tools, lawn mowers, drills, sewing machines, or stoves ? Avoid alcoholic beverages and drugs for allergies, nerves, or sleep ? Do not make important personal or business decisions or sign any legal documents Reason for Visit: [facility] Follow Up for Burn Allergies: Substance Reaction Symptoms Type Comments No known allergies Drug Vital Signs: Vitals and Measurements this Visit (last charted value for your 11/19/2018 visit) Vital Signs This Visit Temperature Temporal: 36.7 DegC Peripheral Pulse Rate: 102 bpm Respiratory Rate: 18 br/min Systolic Blood Pressure: 138 mmHg Diastolic Blood Pressure: 86 mmHg SpO2: 99 % Oxygen Therapy: Room air Measurements This Visit Height: 182.88 cm Weight: 94.8 kg Body Mass Index: 28.34 kg/m2 Problems List: Problem Onset Comments No Problems found Major Tests and Procedures: The following procedures and tests were performed during your ED visit. Laboratory Radiology Cardiology Viruses or Bacteria What?s got you sick? Antibiotics only treat bacterial infections. Viral illnesses cannot be treated with antibiotics. When an antibiotic is not prescribed, ask your healthcare professional for tips on how to relieve symptoms and feel better. Usual Cause Illness Viruses Bacteria Antibiotic Needed Cold/Runny Nose NO Bronchitis/Chest Cold (in otherwise healthy children and adults) NO Whooping Cough Yes Flu NO Strep Throat Yes Sore Throat (except strep) NO Fluid in the middle ear (otitis media with effusion) NO Urinary Tract Infection Yes Antibiotics Aren?t Always the Answer www.cdc.gov/getsmart GET SMART Know When Antibiotics Work U.S. Department of Health and Human Services Centers for Disease Control and Prevention November 2013 [facility] Patient Handouton 11-19-2018 Patient Handout Patient Education Materials Follows: [facility] Urgent Care Rec[facility] 019 Urgent Care Record [facility] ? Urgent Care [address] [place] [address] PATIENT DISCHARGE INSTRUCTIONS Patient Information Name: DAVID PELLETIER Age: 28 Years Date of : 1990 Reason For Visit: Medical screening exam; [facility] FOLLOW UP, LEFT HAND PAIN Arrival Time: 11/19/2018 12:57:00 Primary Care Physician: DMITRIY ARANGO Attending Physician: Noah Alvarado PA-C Comment: Visit Diagnosis: Diagnoses This Visit Medical screening exam ([id number]) Superficial burn of palm of left hand (T23.152A) If you received any narcotics, sedation, or any other medication that causes drowsiness for the next 24 hours, unless otherwise directed: ? Do not drive a car. ? Do not operate machinery such as power tools, lawn mowers, drills, sewing machines, or stoves ? Avoid alcoholic beverages and drugs for allergies, nerves, or sleep ? Do not make important personal or business decisions or sign any legal documents With: Address: When: Return to this practice Comments: Nov 27 at 1 p.m. Medication Information: The exam and treatment you received today in the [facility] were for an urgent problem and are not intended as complete care. It is important for you to follow up with a doctor, nurse practitioner, or physician?s retail administrative assistant for ongoing care. If your symptoms become worse or you do not improve as expected and you are unable to reach your usual health care provider, you should return to the Emergency Department, we are available 24 hours a day. For those patients who have received Radiology results, the interpretation of your X-ray as given to you by our Urgent Care physician is only a preliminary report. The Radiologist will review your films and if there is a change in the diagnosis you will be notified by phone. Please make sure you have provided a working phone number so we can reach you if necessary. In the event that you had a lab culture while you were a patient in the Urgent Care, you will be notified by phone if there is a need to change your antibiotic. Please make sure you have provided a working phone number so we can reach you if necessary. [facility] has provided you with a complete list of medications post discharge. Please inform your hall supervisor/provider of your visit and for further instruction on these medications. Any specific questions regarding your chronic medications and dosages should be discussed with your primary care physician(s) and/or pharmacist. Medications That Were Updated - Follow Below Instructions Other Medications Updated: lisinopril (lisinopril 20 mg oral tablet) 1 tab(s) Oral every day. Medications to Continue That Have Not Changed Other Medications silver sulfADIAZINE topical (Silvadene 1% topical cream) 1 jared Topical 2 times a day. Apply to left palm.. Refills: 0. Visit Information Allergies: Substance Reaction Symptoms Type Comments No known allergies Drug Vital Signs: Vitals and Measurements this Visit (last charted value for your 11/19/2018 visit) Vital Signs This Visit Temperature Temporal: 36.7 DegC Peripheral Pulse Rate: 102 bpm Respiratory Rate: 18 br/min Systolic Blood Pressure: 138 mmHg Diastolic Blood Pressure: 86 mmHg SpO2: 99 % Oxygen Therapy: Room air Measurements This Visit Height: 182.88 cm Weight: 94.8 kg Body Mass Index: 28.34 kg/m2 Problems List: Problem Onset Comments No Problems found Patient Education Viruses or Bacteria What?s got you sick? Antibiotics only treat bacterial infections. Viral illnesses cannot be treated with antibiotics. When an antibiotic is not prescribed, ask your healthcare professional for tips on how to relieve symptoms and feel better. Usual Cause Illness Viruses Bacteria Antibiotic Needed Cold/Runny Nose NO Bronchitis/Chest Cold (in otherwise healthy children and adults) NO Whooping Cough Yes Flu NO Strep Throat Yes Sore Throat (except strep) NO Fluid in the middle ear (otitis media with effusion) NO Urinary Tract Infection Yes Antibiotics Aren?t Always the Answer www.cdc.gov/getsmart GET SMART Know When Antibiotics Work U.S. Department of Health and Human Services Centers for Disease Control and Prevention November 2013 [facility] Lab - Toxicology Resultson 0 11-18-2018 Lab - Toxicology Results [id number] #[id number] [facility] Coding Summaryon 11-15-2018 Coding Summary CODING DATE: 11/15/2018 [facility] STATUS: Home PAYOR: Workers Compensation ADMIT DX: REASON FOR VISIT DX: T23.052A Burn of unspecified degree of left palm, initial encounter FINAL DX: PRINCIPAL: T23.052A Burn of unspecified degree of left palm, initial encounter SECONDARY: X18.XXXA Contact with other hot metals, initial encounter Y99.0 Civilian activity done for income or pay PYMT PROC APC STAT DESCRIPTION DOCTOR NAME DATE NOTE: The code number assigned matches the documented diagnosis and / or procedure in the patient's chart. However, the narrative phrase printed from the coding software may appear abbreviated, or result in slightly different terminology. Coded By: Maren Lizama Date Saved: 11/15/2018 08:58 am [facility] Discharge Instructionson Discharge Instructions [id number] #[id number] [facility] Industrial Breath Jenn 11-15 Industrial Breath [place] Collected [facility] Comment on above: Performed By: #### 1 [id number] #### [facility] (DEFAULT) [address] [place] [id number] Triage Industrialon 11-16-19 19 Drug Screen Complete Collected [facility] Comment on above: Performed By: #### 1 [id number] #### [facility] (DEFAULT) [address] [place] [address] ED Clinical Summaryon 2018 ED Clinical Summary [facility] ? Urgent Care [address] [place] [address] Clinical Summary PERSON INFORMATION Name: DAVID PELLETIER Age: 28 Years Sex: MALE : 1990 MRN: Acct#: Visit Reason: UC - Burn; BURN/LEFT HAND Arrival: 11/14/2018 12:42:16 Discharge: 11/14/2018 13:20:00 LOS: 000 00:38 Check In: 11/14/2018 12:42:16 Checkout: 11/14/2018 13:20:00 Address: [address] [place] [id number] PCP: DMITRIY ARANGO PROVIDER INFORMATION Provider Role Assigned Unassigned Dio Pruitt ED PA 11/14/2018 12:46:00 Blanka Pang [employer] Nurse 11/14/2018 12:50:29 VITALS INFORMATION Vital Sign Triage Latest Temperature Tympanic Temperature Temporal Artery Pulse Rate O2 Sat Respiratory Rate Blood Pressure /80 mmHg /80 mmHg MEDICAL INFORMATION Medications Given: Medication Dose Route silver sulfADIAZINE topical 1 jared TOP Allergy Information: No known allergies PHYSICIAN DOCUMENTATION Patient: DAVID PELLETIER Age: 28 years Sex: MALE : 1990 Associated Diagnoses: Superficial burn to the left palm Author: Dio Pruitt Basic Information Time seen: Date & time 11/14/2018 12:51:00. History source: Patient. History limitation: None. History of Present Illness patient is a 28-year-old male complaint of superficial burn to left palm. Occurred approximately 1 hour prior to arrival. Pt works at [employer], this is a work related injury. states was heating a piece of metal, states went to move the metal touching it with his palm before it had cooled off. Review of Systems Constitutional symptoms: Negative except as documented in HPI. Skin symptoms: Negative except as documented in HPI. Additional review of systems information: All other systems reviewed and otherwise negative. Health Status Allergies: No active allergies have been recorded.. Past Medical/ Family/ Social History Medical history: No active or resolved past medical history items have been selected or recorded.. Surgical history: No active procedure history items have been selected or recorded.. Family history: No family history items have been selected or recorded.. Social history: Social & Psychosocial Habits No Data Available . Problem list: No qualifying data available . Physical Examination Vital Signs Vital Signs 11/14/2018 12:42 EDT Temperature Oral 36.7 DegC Apical Heart Rate 88 bpm Respiratory Rate 16 br/min Systolic Blood Pressure 120 mmHg Diastolic Blood Pressure 80 mmHg . General: Alert, no acute distress. Skin: Warm, dry, 1.5cm superficial burn to the left palm . Head: Normocephalic, atraumatic. Eye: Normal conjunctiva. Cardiovascular: Regular rate and rhythm. Respiratory: Lungs are clear to auscultation, respirations are non-labored, breath sounds are equal, Symmetrical chest wall expansion. Back: Normal range of motion. Musculoskeletal: Normal ROM. Psychiatric: Cooperative, appropriate mood & affect. Medical Decision Making Differential Diagnosis: First degree burn, second degree burn, third degree burn, superficial over. Orders Launch Orders Patient Care: Wound Care Routine (Order): 11/14/2018 12:52 EDT, cleanse and dress Pharmacy: Silvadene 1% topical cream (Order): 1 jared, TOP, Once. patient with superficial burn to the left palm. It is cleansed and dressed in the urgent care Silvadene applied.Home care instructions provided, pt stated understanding of home care instructions. follow-up scheduled. Patient was provided with right-handed duty off today. Can return tomorrow. Impression and Plan Diagnosis Superficial burn to the left palm (YTA35-ME T30.0, Discharge, Medical) Plan Prescriptions: Launch prescriptions Pharmacy: Silvadene 1% topical cream (Prescribe): 1 jared, TOP, BID, Apply to left palm., 50 gm, 0 Refill(s). Patient was given the following educational materials: Burn Care, Adult, Rvpl-jx-Gorr, Burn Care, Adult, Skzj-eb-Shqp. Follow up with: NEWTON BURGESSRAYRAY [facility]YAKELIN Apply the Silvadene twice daily, may keep in the refrigerator, will have a cooling affect when applied This medication will help the burn heal and is also a topical antibiotic return on Sunday for recheck with occupational health . Counseled: Patient, Regarding diagnosis, Regarding diagnostic results, Regarding treatment plan, Regarding prescription, Patient indicated understanding of instructions. DISCHARGE INFORMATION: Discharge Disposition: Home Discharge Location: Home PATIENT EDUCATION INFORMATION Instructions: Burn Care, Adult, Uzry-hu-Jaqd Follow-Up: With: Address: When: DMITRIY EAGLEPUJA [address] [place] [phone] Business (1) Comments: Apply the Silvadene twice daily, may keep in the refrigerator, will have a cooling affect when applied This medication will help the burn heal and is also a topical antibiotic return on Sunday for recheck with occupational health DIAGNOSIS: Superficial burn to the left palm Patient Understands: Yes - Patient/family/careg iver verbalizes understanding of instructions given Comment: [facility] ED Note - Physicianon 2018 ED Note - Physician Patient: DAVID PELLETIER Age: 28 years Sex: MALE : 1990 Associated Diagnoses: Superficial burn to the left palm Author: Dio Pruitt Basic Information Time seen: Date & time 11/14/2018 12:51:00. History source: Patient. History limitation: None. History of Present Illness patient is a 28-year-old male complaint of superficial burn to left palm. Occurred approximately 1 hour prior to arrival. Pt works at [employer], this is a work related injury. states was heating a piece of metal, states went to move the metal touching it with his palm before it had cooled off. Review of Systems Constitutional symptoms: Negative except as documented in HPI. Skin symptoms: Negative except as documented in HPI. Additional review of systems information: All other systems reviewed and otherwise negative. Health Status Allergies: No active allergies have been recorded.. Past Medical/ Family/ Social History Medical history: No active or resolved past medical history items have been selected or recorded.. Surgical history: No active procedure history items have been selected or recorded.. Family history: No family history items have been selected or recorded.. Social history: Social & Psychosocial Habits No Data Available . Problem list: No qualifying data available . Physical Examination Vital Signs Vital Signs 11/14/2018 12:42 EDT Temperature Oral 36.7 DegC Apical Heart Rate 88 bpm Respiratory Rate 16 br/min Systolic Blood Pressure 120 mmHg Diastolic Blood Pressure 80 mmHg . General: Alert, no acute distress. Skin: Warm, dry, 1.5cm superficial burn to the left palm . Head: Normocephalic, atraumatic. Eye: Normal conjunctiva. Cardiovascular: Regular rate and rhythm. Respiratory: Lungs are clear to auscultation, respirations are non-labored, breath sounds are equal, Symmetrical chest wall expansion. Back: Normal range of motion. Musculoskeletal: Normal ROM. Psychiatric: Cooperative, appropriate mood & affect. Medical Decision Making Differential Diagnosis: First degree burn, second degree burn, third degree burn, superficial over. Orders Launch Orders Patient Care: Wound Care Routine (Order): 11/14/2018 12:52 EDT, cleanse and dress Pharmacy: Silvadene 1% topical cream (Order): 1 jared, TOP, Once. patient with superficial burn to the left palm. It is cleansed and dressed in the urgent care Silvadene applied.Home care instructions provided, pt stated understanding of home care instructions. follow-up scheduled. Patient was provided with right-handed duty off today. Can return tomorrow. Impression and Plan Diagnosis Superficial burn to the left palm ([id number] T30.0, Discharge, Medical) Plan Prescriptions: Launch prescriptions Pharmacy: Silvadene 1% topical cream (Prescribe): 1 jared, TOP, BID, Apply to left palm., 50 gm, 0 Refill(s). Patient was given the following educational materials: Burn Care, Adult, Qrqv-ok-Rshk, Burn Care, Adult, Koda-mg-Uuap. Follow up with: DMITRIY ARANGO, DMITRIY ARANGO Apply the Silvadene twice daily, may keep in the refrigerator, will have a cooling affect when applied This medication will help the burn heal and is also a topical antibiotic return on Sunday for recheck with occupational health . Counseled: Patient, Regarding diagnosis, Regarding diagnostic results, Regarding treatment plan, Regarding prescription, Patient indicated understanding of instructions. [Electronically Signed on: 11/14/2018 13:25 EDT] Dio Pruitt [Verified on: 11/14/2018 13:25 EDT] Dio Pruitt [facility] ED Note-Nursingon 11-14-2018 ED Note-Nursing left hand cleansed with sterile saline and bets sept. dressed with silvadene adaptic non stick and burn dressing secured with spandage pt denita well instructed to leave dressing on until tomorrow change dressing in am and apply silvadene 2 times a day and weear dressing till rechecked on sunday with [facility]. mg [facility] ED Patient Summaryon 019 ED Patient Summary [facility] ? Urgent Care [address] [place] [id number] PATIENT DISCHARGE INSTRUCTIONS Patient Information Name: DAVID PELLETIER Age: 28 Years Date of : 1990 Reason For Visit: UC - Burn; BURN/LEFT HAND Arrival Time: 11/14/2018 12:42:16 Primary Care Physician: DMITRIY ARANGO Attending Physician: Dio Pruitt Comment: Patient Education With: Address: When: DMITRIY ARANGO [address] [place], [place] [phone] Business (1) Comments: Apply the Silvadene twice daily, may keep in the refrigerator, will have a cooling affect when applied This medication will help the burn heal and is also a topical antibiotic return on Teresa for recheck with occupational health Burn Care, Adult A burn is an injury to the skin or the tissues under the skin. There are three types of mi: ? First degree. These mi may cause the skin to be red and a bit swollen. ? Second degree. These mi are very painful and cause the skin to be very red. The skin may also leak fluid, look shiny, and start to have blisters. ? Third degree. These mi cause permanent damage. They turn the skin white or black and make it look charred, dry, and leathery. Taking care of your burn properly can help to prevent pain and infection. It can also help the burn to heal more quickly. How is this treated? Right after a burn: ? Rinse or soak the burn under cool water. Do this for several minutes. Do not put ice on your burn. That can cause more damage. ? Lightly cover the burn with a clean (sterile) cloth (dressing). Burn care ? Raise (elevate) the injured area above the level of your heart while sitting or lying down. ? Follow instructions from your doctor about: ? How to clean and take care of the burn. ? When to change and remove the cloth. ? Check your burn every day for signs of infection. Check for: ? More redness, swelling, or pain. ? Warmth. ? Pus or a bad smell. Medicine ? Take wlln-ikd-lvmutdw and prescription medicines only as told by your doctor. ? If you were prescribed antibiotic medicine, take or apply it as told by your doctor. Do not stop using the antibiotic even if your condition improves. General instructions ? To prevent infection: ? Do not put butter, oil, or other home treatments on the burn. ? Do not scratch or pick at the burn. ? Do not break any blisters. ? Do not peel skin. ? Do not rub your burn, even when you are cleaning it. ? Protect your burn from the sun. Contact a doctor if: ? Your condition does not get better. ? Your condition gets worse. ? You have a fever. ? Your burn looks different or starts to have black or red spots on it. ? Your burn feels warm to the touch. ? Your pain is not controlled with medicine. Get help right away if: ? You have redness, swelling, or pain at the site of the burn. ? You have fluid, blood, or pus coming from your burn. ? You have red streaks near the burn. ? You have very bad pain. This information is not intended to replace advice given to you by your health care provider. Make sure you discuss any questions you have with your health care provider. Document Released: 12/05/2008 Document Revised: 10/09/2017 Document Reviewed: 08/15/2016 [employer] Interactive Patient Education ? 2019 [place]. Medication Information: The exam and treatment you received today in the [facility] Emergency Department were for an urgent problem and are not intended as complete care. It is important for you to follow up with a doctor, nurse practitioner, or physician?s retail administrative assistant for ongoing care. If your symptoms become worse or you do not improve as expected and you are unable to reach your usual health care provider, you should return to the Emergency Department, we are available 24 hours a day. For those patients who have received Radiology results, the interpretation of your X-ray as given to you by our Emergency Department physician is only a preliminary report. The Radiologist will review your films and if there is a change in the diagnosis you will be notified by phone. Please make sure you have provided a working phone number so we can reach you if necessary. In the event that you had a lab culture while you were a patient in the Emergency Department, you will be notified by phone if there is a need to change your antibiotic. Please make sure you have provided a working phone number so we can reach you if necessary. [facility] Emergency Department has provided you with a complete list of medications post discharge. Please inform your hall supervisor/provider of your visit and for further instruction on these medications. Any specific questions regarding your chronic medications and dosages should be discussed with your primary care physician(s) and/or pharmacist. New Medications [facility], [place] [id number], [phone] silver sulfADIAZINE topical (Silvadene 1% topical cream) 1 jared Topical 2 times a day. Apply to left palm.. Refills: 0. Medications to Continue That Have Not Changed Other Medications lisinopril Oral every day. Visit Information Visit Diagnosis: Diagnoses This Visit Superficial burn to the left palm (T30.0) UC - Burn ([id number]) If you received any narcotics, sedation, or any other medication that causes drowsiness for the next 24 hours, unless otherwise directed: ? Do not drive a car. ? Do not operate machinery such as power tools, lawn mowers, drills, sewing machines, or stoves ? Avoid alcoholic beverages and drugs for allergies, nerves, or sleep ? Do not make important personal or business decisions or sign any legal documents Reason for Visit: while working patient sustained a burn to left palm and fingers onset apx one hour ago no blisters noted at this time Allergies: Substance Reaction Symptoms Type Comments No known allergies Drug Vital Signs: Vitals and Measurements this Visit (last charted value for your 11/14/2018 visit) Vital Signs This Visit Temperature Oral: 36.7 DegC Apical Heart Rate: 88 bpm Respiratory Rate: 16 br/min Systolic Blood Pressure: 120 mmHg Diastolic Blood Pressure: 80 mmHg Measurements This Visit Height: 182.88 cm Weight: 94.80 kg Body Mass Index: 28.34 kg/m2 Problems List: Problem Onset Comments No Problems found Major Tests and Procedures: The following procedures and tests were performed during your ED visit. Laboratory Radiology Cardiology Viruses or Bacteria What?s got you sick? Antibiotics only treat bacterial infections. Viral illnesses cannot be treated with antibiotics. When an antibiotic is not prescribed, ask your healthcare professional for tips on how to relieve symptoms and feel better. Usual Cause Illness Viruses Bacteria Antibiotic Needed Cold/Runny Nose NO Bronchitis/Chest Cold (in otherwise healthy children and adults) NO Whooping Cough Yes Flu NO Strep Throat Yes Sore Throat (except strep) NO Fluid in the middle ear (otitis media with effusion) NO Urinary Tract Infection Yes Antibiotics Aren?t Always the Answer www.cdc.gov/getsmart GET SMART Know When Antibiotics Work U.S. Department of Health and Human Services Centers for Disease Control and Prevention November 2013 [facility] Patient Handouton 11-14-2018 Patient Handout Patient Education Materials Follows:Medicine and Rehabilitation Burn Care, Adult A burn is an injury to the skin or the tissues under the skin. There are three types of mi: ? First degree. These mi may cause the skin to be red and a bit swollen. ? Second degree. These mi are very painful and cause the skin to be very red. The skin may also leak fluid, look shiny, and start to have blisters. ? Third degree. These mi cause permanent damage. They turn the skin white or black and make it look charred, dry, and leathery. Taking care of your burn properly can help to prevent pain and infection. It can also help the burn to heal more quickly. How is this treated? Right after a burn: ? Rinse or soak the burn under cool water. Do this for several minutes. Do not put ice on your burn. That can cause more damage. ? Lightly cover the burn with a clean (sterile) cloth (dressing). Burn care ? Raise (elevate) the injured area above the level of your heart while sitting or lying down. ? Follow instructions from your doctor about: ? How to clean and take care of the burn. ? When to change and remove the cloth. ? Check your burn every day for signs of infection. Check for: ? More redness, swelling, or pain. ? Warmth. ? Pus or a bad smell. Medicine ? Take dlea-mcf-usitymx and prescription medicines only as told by your doctor. ? If you were prescribed antibiotic medicine, take or apply it as told by your doctor. Do not stop using the antibiotic even if your condition improves. General instructions ? To prevent infection: ? Do not put butter, oil, or other home treatments on the burn. ? Do not scratch or pick at the burn. ? Do not break any blisters. ? Do not peel skin. ? Do not rub your burn, even when you are cleaning it. ? Protect your burn from the sun. Contact a doctor if: ? Your condition does not get better. ? Your condition gets worse. ? You have a fever. ? Your burn looks different or starts to have black or red spots on it. ? Your burn feels warm to the touch. ? Your pain is not controlled with medicine. Get help right away if: ? You have redness, swelling, or pain at the site of the burn. ? You have fluid, blood, or pus coming from your burn. ? You have red streaks near the burn. ? You have very bad pain. This information is not intended to replace advice given to you by your health care provider. Make sure you discuss any questions you have with your health care provider. Document Released: 12/05/2008 Document Revised: 10/09/2017 Document Reviewed: 08/15/2016 [employer] Interactive Patient Education ? 2019 [place]. [facility] Rec[address] 019 Urgent Care Record [facility] ? Urgent Care [address] [place] [address] PATIENT DISCHARGE INSTRUCTIONS Patient Information Name: DAVID PELLETIER Age: 28 Years Date of : 1990 Reason For Visit: UC - Burn; BURN/LEFT HAND Arrival Time: 11/14/2018 12:42:16 Primary Care Physician: DMITRIY ARANGO Attending Physician: Dio Pruitt Comment: Visit Diagnosis: Diagnoses This Visit Superficial burn to the left palm (T30.0) UC - Burn ([id number]) If you received any narcotics, sedation, or any other medication that causes drowsiness for the next 24 hours, unless otherwise directed: ? Do not drive a car. ? Do not operate machinery such as power tools, lawn mowers, drills, sewing machines, or stoves ? Avoid alcoholic beverages and drugs for allergies, nerves, or sleep ? Do not make important personal or business decisions or sign any legal documents With: Address: When: DMITRIY ARANGO [address] [place], [place] [id number] Business (1) Comments: Apply the Silvadene twice daily, may keep in the refrigerator, will have a cooling affect when applied This medication will help the burn heal and is also a topical antibiotic return on Sunday for recheck with occupational health Medication Information: The exam and treatment you received today in the [facility] were for an urgent problem and are not intended as complete care. It is important for you to follow up with a doctor, nurse practitioner, or physician?s retail administrative assistant for ongoing care. If your symptoms become worse or you do not improve as expected and you are unable to reach your usual health care provider, you should return to the Emergency Department, we are available 24 hours a day. For those patients who have received Radiology results, the interpretation of your X-ray as given to you by our Urgent Care physician is only a preliminary report. The Radiologist will review your films and if there is a change in the diagnosis you will be notified by phone. Please make sure you have provided a working phone number so we can reach you if necessary. In the event that you had a lab culture while you were a patient in the Urgent Care, you will be notified by phone if there is a need to change your antibiotic. Please make sure you have provided a working phone number so we can reach you if necessary. [facility] has provided you with a complete list of medications post discharge. Please inform your hall supervisor/provider of your visit and for further instruction on these medications. Any specific questions regarding your chronic medications and dosages should be discussed with your primary care physician(s) and/or pharmacist. New Medications WILDERDANACarlos TRINY [address] [place], [place] [id number], [phone] silver sulfADIAZINE topical (Silvadene 1% topical cream) 1 jared Topical 2 times a day. Apply to left palm.. Refills: 0. Medications to Continue That Have Not Changed Other Medications lisinopril Oral every day. Visit Information Allergies: Substance Reaction Symptoms Type Comments No known allergies Drug Vital Signs: Vitals and Measurements this Visit (last charted value for your 11/14/2018 visit) Vital Signs This Visit Temperature Oral: 36.7 DegC Apical Heart Rate: 88 bpm Respiratory Rate: 16 br/min Systolic Blood Pressure: 120 mmHg Diastolic Blood Pressure: 80 mmHg Measurements This Visit Height: 182.88 cm Weight: 94.80 kg Body Mass Index: 28.34 kg/m2 Problems List: Problem Onset Comments No Problems found Patient Education Burn Care, Adult A burn is an injury to the skin or the tissues under the skin. There are three types of mi: ? First degree. These mi may cause the skin to be red and a bit swollen. ? Second degree. These mi are very painful and cause the skin to be very red. The skin may also leak fluid, look shiny, and start to have blisters. ? Third degree. These mi cause permanent damage. They turn the skin white or black and make it look charred, dry, and leathery. Taking care of your burn properly can help to prevent pain and infection. It can also help the burn to heal more quickly. How is this treated? Right after a burn: ? Rinse or soak the burn under cool water. Do this for several minutes. Do not put ice on your burn. That can cause more damage. ? Lightly cover the burn with a clean (sterile) cloth (dressing). Burn care ? Raise (elevate) the injured area above the level of your heart while sitting or lying down. ? Follow instructions from your doctor about: ? How to clean and take care of the burn. ? When to change and remove the cloth. ? Check your burn every day for signs of infection. Check for: ? More redness, swelling, or pain. ? Warmth. ? Pus or a bad smell. Medicine ? Take anor-wem-fjoeces and prescription medicines only as told by your doctor. ? If you were prescribed antibiotic medicine, take or apply it as told by your doctor. Do not stop using the antibiotic even if your condition improves. General instructions ? To prevent infection: ? Do not put butter, oil, or other home treatments on the burn. ? Do not scratch or pick at the burn. ? Do not break any blisters. ? Do not peel skin. ? Do not rub your burn, even when you are cleaning it. ? Protect your burn from the sun. Contact a doctor if: ? Your condition does not get better. ? Your condition gets worse. ? You have a fever. ? Your burn looks different or starts to have black or red spots on it. ? Your burn feels warm to the touch. ? Your pain is not controlled with medicine. Get help right away if: ? You have redness, swelling, or pain at the site of the burn. ? You have fluid, blood, or pus coming from your burn. ? You have red streaks near the burn. ? You have very bad pain. This information is not intended to replace advice given to you by your health care provider. Make sure you discuss any questions you have with your health care provider. Document Released: 12/05/2008 Document Revised: 10/09/2017 Document Reviewed: 08/15/2016 [employer]Page Interactive Patient Education ? 2019 [employer] Viruses or Bacteria What?s got you sick? Antibiotics only treat bacterial infections. Viral illnesses cannot be treated with antibiotics. When an antibiotic is not prescribed, ask your healthcare professional for tips on how to relieve symptoms and feel better. Usual Cause Illness Viruses Bacteria Antibiotic Needed Cold/Runny Nose NO Bronchitis/Chest Cold (in otherwise healthy children and adults) NO Whooping Cough Yes Flu NO Strep Throat Yes Sore Throat (except strep) NO Fluid in the middle ear (otitis media with effusion) NO Urinary Tract Infection Yes Antibiotics Aren?t Always the Answer www.cdc.gov/getsmart GET SMART Know When Antibiotics Work U.S. Department of Health and Human Services Centers for Disease Control and Prevention November 2013 [facility] Vital Signs Date Time Vital Sign Value Performing Clinician Facility 01-31-2024 14:40-0500 Diastolic blood pressure 82 mm[Hg] Lydia Galea [facility] 01-31-2024 14:40-0500 Heart rate 72 /min Lydia Galea [facility] 01-31-2024 14:40-0500 Systolic blood pressure 146 mm[Hg] Lydia Galea [facility] 01-15-2024 13:18-0500 Body height 180.3 cm Dmitriy Arango DO Work Phone: [facility] 01-15-2024 13:18-0500 Body mass index (BMI) [Ratio] 34.17 kg/m2 Dmitriy Montanaick DO Work Phone: [facility] 01-15-2024 13:18-0500 Body temperature 98.01 [degF] Dmitriy Montanaick DO Work Phone: [facility] 01-15-2024 13:18-0500 Body weight 111.13 kg Dmitriy Petrolyick DO Work Phone: [facility] 01-15-2024 13:18-0500 Diastolic blood pressure 74 mm[Hg] Dmitriy Petznick DO Work Phone: [facility] 01-15-2024 13:18-0500 Heart rate 80 /min Dmitriy Montanaick DO Work Phone: [facility] 01-15-2024 13:18-0500 Systolic blood pressure 116 mm[Hg] Dmitriy Petrolyick DO Work Phone: [facility] 09-26-2022 13:31-0400 Blood Pressure Location Ahsan PATEL [facility] 09-26-2022 13:31-0400 Diastolic blood pressure 92 mm[Hg] Ahsan PATEL [facility] 09-26-2022 13:31-0400 Heart rate 87 /min Ahsan PATEL [facility] 09-26-2022 13:31-0400 Systolic blood pressure 146 mm[Hg] Ahsan PATEL [facility] 12-26-2021 10:19-0400 Blood Pressure Location Jose RICE [facility] 12-26-2021 10:19-0400 Diastolic blood pressure 95 mm[Hg] Jose RICE [facility] 12-26-2021 10:19-0400 Heart rate 94 /min Jose RICE [facility] 12-26-2021 10:19-0400 Systolic blood pressure 140 mm[Hg] Jose RICE [facility] 05-29-2021 02:06-0400 Body temperature 98.24 [degF] Felton Dio [facility] 05-29-2021 02:06-0400 Diastolic blood pressure 88 mm[Hg] Felton Dio [facility] 05-29-2021 02:06-0400 Heart rate 121 /min Felton Dio [facility] 05-29-2021 02:06-0400 Mean blood pressure 107 mm[Hg] Felton Dio [facility] 05-29-2021 02:06-0400 Respiratory rate 16 /min Felton Wharton [facility] 05-29-2021 02:06-0400 SaO2% (BldA) [Mass fraction] 94 % Felton Dio [facility] 05-29-2021 02:06-0400 Systolic blood pressure 144 mm[Hg] Felton Wharton [facility] 05-29-2021 00:50-0400 Body temperature 98.24 [degF] Felton Wharton [facility] 05-29-2021 00:50-0400 Diastolic blood pressure 103 mm[Hg] Felton Wharton [facility] 05-29-2021 00:50-0400 Heart rate 129 /min Felton Wharton [facility] 05-29-2021 00:50-0400 Mean blood pressure 119 mm[Hg] Felton Wharton [facility] 05-29-2021 00:50-0400 Respiratory rate 16 /min Felton Wharton [facility] 05-29-2021 00:50-0400 SaO2% (BldA) [Mass fraction] 96 % Felton Wharton [facility] 05-29-2021 00:50-0400 Systolic blood pressure 150 mm[Hg] Felton Wharton [facility] Encounters Encounter Date Encounter Type Care Provider Facility Start: 01-31-2024 End: 01-31-2024 ambulatory Lydia Leung Facility:[facility] Start: 01-31-2024 End: 01-31-2024 Patient encounter procedure Lydia Leung [facility] Start: 01-15-2024 End: 01-15-2024 Patient encounter status Dmitriy Arango DO Work Phone: [facility] Work Phone: Start: 01-15-2024 End: 01-15-2024 Periodic preventive med est patient 18-39 yrs Dmitriy Arango DO Work Phone: [phone] Comment on above: Routine general medi mi examination at a health care facility (Primary Dx); Obesity (BMI 30-39.9); Tick bite, unspecified site, sequela Start: 01-15-2024 End: 01-15-2024 ambulatory DMITRIY ARANGO Not Available Start: 12-19-2023 End: 12-19-2023 ambulatory Ahsan PATEL Facility:[facility] Start: 12-19-2023 End: 12-19-2023 Lab Drop off Ahsan PATEL [facility] Start: 02-08-2023 End: 02-08-2023 ambulatory DMITRIY ARANGO Not Available Start: 09-26-2022 End: 09-26-2022 Patient encounter procedure Ahsan PATEL [facility] Start: 04-27-2022 End: 04-27-2022 Lab Drop off Jose LUNA [facility] Start: 12-26-2021 End: 03-30-2022 Pre-admission assessment Jose LUNA [facility] Start: 12-26-2021 End: 12-26-2021 Patient encounter procedure Jose LUNA [facility] Start: 05-29-2021 End: 05-29-2021 Emergency department patient visit Felton Wharton [facility] Procedures Date Procedure Procedure Detail Performing Clinician Start: 02-08-2023 H/O: vasectomy Vasectomy status Ozzy Arango DO Work Phone: Start: 04-27-2022 Vasectomy Jose NEGRETE Gabriel Colonoscopy Jose LUNA H/O: vasectomy Vasectomy status Jose OSORIO Plan of Treatment Date Care Activity Detail Author Start: 01-15-2024 End: 01-14-2025 B. burgdorferi antibodies by WB B. burgdorferi antibodies by WB Lab Routine Tick bite, unspecified site, sequela Expected: 01/15/2024 (Approximate), Expires: 01/14/2025 [facility] Work Phone: Comment on above: Expected: 01/15/2024 (Approximate), Expires: 01/14/2025 Start: 11-11-2023 Influenza vaccination Influenza Vacc ine (#1) [facility] CBC W Auto Different ial panel - Blood CBC and differential Lab Routine Routine general medical examination at a health care facility Ordered: 01/15/2024 [facility] Comment on above: Ordered: 01/15/2024 Comprehensive metabo lic 2000 panel - Serum or Plasma Comprehensive metabolic panel Lab Routine Routine general medical examination at a health care facility Ordered: 01/15/2024 [facility] Comment on above: Ordered: 01/15/2024 Lipid 1996 panel - S brittany or Plasma Lipid panel Lab Routine Routine general medical examination at a health care facility Ordered: 01/15/2024 [facility] Comment on above: Ordered: 01/15/2024 Immunizations Immunization Date Immunization Notes Care Provider Kaylen [facility] 05-09-2019 tetanus toxoid, reduced diphtheria toxoid, and acellular pertussis vaccine, adsorbed Jose LUNA [facility] 10-30-2002 hepatitis B vaccine, pediatric or pediatric/adolescent dosage Jose LUNA [facility] 10-30-2002 measles, mumps and rubella virus vaccine Jose RICE [facility] 03-31-1992 Hib, unspecified formulation Jose RICE [facility] 03-31-1992 measles, mumps and rubella virus vaccine Jose RICE [facility] 03-31-1992 poliovirus vaccine, unspecified formulation Jose [employer] [facility] NEGATED: Highlighted row has not occurred!12-26-2021 SARS-CoV-2 mRNA (tozinameran 5y-11y) vaccine Jose [employer] [facility] Payers Date Payer Category [facility] [id number] 2020 Unknown [id number] 1990 Unknown [id number] 1990 Unknown [id number] 1990 Unknown [id number] 1990 Unknown [id number] Private Health Insurance Self Pay [id number] Self-pay Self Pay [id number] Unknown Self Pay [id number] Social History Date Type Detail Facility [facility] ever [facility] Start: 1990 Sex Assigned At Male F [facility] Start: 05-29-2021 Tobacco smoking status Never [facility] Start: 01-15-2024 Sex Assigned At Male F [facility] Start: 12-26-2021 End: 01-31-2024 Tobacco smoking status Ex-smoker (finding) [facility] End: 03-12-2021 History of tobacco use Current smoker [facility] End: 03-12-2021 History of tobacco use Cigarette Smoker [facility] Start: 01-15-2024 Tobacco use and exposure Former smokeless tobacco user [facility] End: 12-11-2023 History of tobacco use Chews Tobacco [facility] Start: 01-15-2024 Alcoholic beverage intake Current drinker of alcohol (finding) [facility] Start: 01-15-2024 Alcoholic beverage intake [facility] Start: 1990 Sex assigned at Not on file [facility] Goals Date Patient Goal Desired Activity /State Functional Status Date Assessment Result Facility 01-31-2024 Functional Status N/A [facility] 09-26-2022 Functional Status N/A [facility] 12-26-2021 Functional Status N/A [facility] Clinical Notes 05-29-2021 to 01-31-2024 Dmitriy Arango, DO - 01/15/2024 1:30 PM ESTLaboratoryLaboratory Note Date & Type Note Facility 01-31-2024 Hospital Discharge instructions Patient Education 01/31/2024 15:20:42 Testicular Self-Exam Testicular Self-Exam A self-examination of your testicles (testicular self-exam) involves looking at and feeling your testicles for abnormal lumps or swelling. Several things can cause swelling, lumps, or pain in your testicles, including: Injuries. Inflammation. Infection. Buildup of fluids around the testicle (hydrocele). Twisted testicles (testicular torsion). Testicular cancer. You may be at risk for this if you have: ?A testicle that has not descended. ?Previously had testicular cancer. ?A family history of testicular cancer. General tips It is easiest to do a self-exam during or after a warm bath or shower. Testicles are harder to examine when you are cold because the muscles attached to the testicles retract and pull them up higher or into the abdomen. A normal testicle is egg-shaped and feels firm. It is smooth and not tender. It is normal to feel a firm, spaghetti-like cord at the back of your testicle. This is the spermatic cord. Do a self-exam once a month. How to do a testicular self-exam 1.Stand and hold your penis away from your body. 2.Look at each testicle to check for changes in appearance, such as swelling or changes in size or shape. 3.Roll each testicle between your thumb and forefinger, feeling the entire testicle. Feel for: Lumps. Swelling. Discomfort. 4.Check for swelling or tender bumps in the groin area. Your groin is where your lower belly (abdomen) meets your upper thighs. Contact a health care provider if: You find a bump or lump. This may be a small, hard bump that is the size of a pea. You have swelling, pain, or soreness in your testicle area. You see or feel any other changes in your testicles. This information is not intended to replace advice given to you by your health care provider. Make sure you discuss any questions you have with your health care provider. Document Revised: 12/11/2022 Document Reviewed: 12/11/2022 [employer] Patient Education 2023 [place]. Follow Up Care 01/29/2024 08:43:01 With:Xochitl AMOS, Lydia Klein, URL Address: When: only if needed [facility] 01-31-2024 Note Patient Education Urology Testicular Self-Exam A self-examination of your testicles (testicular self-exam) involves looking at and feeling your testicles for abnormal lumps or swelling. Several things can cause swelling, lumps, or pain in your testicles, including: ??? Injuries. ??? Inflammation. ??? Infection. ??? Buildup of fluids around the testicle (hydrocele). ??? Twisted testicles (testicular torsion). ??? Testicular cancer. You may be at risk for this if you have: ? A testicle that has not descended. ? Previously had testicular cancer. ? A family history of testicular cancer. General tips ??? It is easiest to do a self-exam during or after a warm bath or shower. Testicles are harder to examine when you are cold because the muscles attached to the testicles retract and pull them up higher or into the abdomen. ??? A normal testicle is egg-shaped and feels firm. It is smooth and not tender. ??? It is normal to feel a firm, spaghetti-like cord at the back of your testicle. This is the spermatic cord. ??? Do a self-exam once a month. How to do a testicular self-exam 1. Stand and hold your penis away from your body. 2. Look at each testicle to check for changes in appearance, such as swelling or changes in size or shape. 3. Roll each testicle between your thumb and forefinger, feeling the entire testicle. Feel for: ??? Lumps. ??? Swelling. ??? Discomfort. 4. Check for swelling or tender bumps in the groin area. Your groin is where your lower belly (abdomen) meets your upper thighs. Contact a health care provider if: ??? You find a bump or lump. This may be a small, hard bump that is the size of a pea. ??? You have swelling, pain, or soreness in your testicle area. ??? You see or feel any other changes in your testicles. This information is not intended to replace advice given to you by your health care provider. Make sure you discuss any questions you have with your health care provider. Document Revised: 12/11/2022 Document Reviewed: 12/11/2022 [employer] Patient Education ? 2023 [place]. [facility] 01-15-2024 History of Present illness Narrative Images from the original note were not included. David Pelletier is a 33 y.o. male presents with chief complaint of Chief Complaint Patient presents with Annual Exam ASSESSMENT AND PLAN: David was seen today for annual exam. Diagnoses and all orders for this visit: Routine general medical examination at a health care facility At [facility] maintanence appointment I reviewed the patients past medical history along with any laboratory and diagnostic testing preformed prior to the visit. During the visit, health care maintanence was reviewed and recommendations made specifically for the patient based on their risk factors. Current colon cancer screening: not indicated at this time. Blood work: routine blood work ordered. Patient was instructed to call the office if any health issues arise until the next well check/appointment. At the conclusion of the visit all questions were answered which were brought forth. - Cancel: Comprehensive metabolic panel - Cancel: Lipid panel - Cancel: CBC and differential - CBC and differential - Comprehensive metabolic panel - Lipid panel Obesity (BMI 30-39.9) Tick bite, unspecified site, sequela - B. burgdorferi antibodies by WB; Future - B. burgdorferi antibodies by WB He reports a recent tick bite with no swelling or bull's eye rash. Blood work will be conducted to check for Lyme disease and other tick-borne illnesses. If results indicate an infection, antibiotics will be prescribed. DMITRIY ARANGO D.O. This note was entered using [employer] copilot. Grammatical and dictation errors maybe present in translation *I have reviewed and reconciled the history and medication list with the patient today* History of Present Illness Here for yearly well check and blood work. Wants to be checked for lyme disease because he had deer tick attached to him 2 weeks ago. Had a fever for 24 hours 3 days ago but nothing since. The patient is here for a yearly physical. He reports a recent tick bite, which he noticed after a fall the following morning. The tick was of normal size and was embedded in his skin. He successfully removed it and did not observe any rash. He expresses concern about potential blood-borne viruses transmitted by deer ticks. He also mentions a recent episode of diarrhea and fever, which he managed with Tylenol and Motrin. His daughter experienced similar symptoms. SUBJECTIVE: Current Medications: Allergies/DC Medication Depression Screen/Social History No current outpatient medications on file. No Known Allergies Medications Discontinued During This Encounter Medication Reason permethrin (Elimite) 5 % cream Therapy completed Depression: Not at risk (01/15/2024) PHQ-2 PHQ-2 Score: 0 Social History Tobacco Use Smoking status: Former Current packs/day: 0.00 Types: Cigarettes Quit date: 03/12/2021 Years since quittin.8 Smokeless tobacco: Former Types: Chew Quit date: 12/11/2023 Vaping Use Vaping status: Never Used Substance Use Topics Alcohol use: Yes Alcohol/week: 5.0 standard drinks of alcohol Types: 5 Standard drinks or equivalent per week PAST MEDICAL HISTORY: SURGICAL/SOCIAL/FAMILY HISTORY Past Medical History: Diagnosis Date Hypertension (CMS/HCC) Past Surgical History: Procedure Laterality Date COLONOSCOPY 02/15/2018 VASECTOMY 2022 Family History Problem Relation Name Age of Onset Heart disease Mother REVIEW OF SYMPTOMS: Review of Systems Constitutional: Negative for fatigue. HENT: Negative for rhinorrhea. Respiratory: Negative for cough and shortness of breath. Cardiovascular: Negative for chest pain. Gastrointestinal: Negative for abdominal distention. Skin: Negative for rash. Neurological: Negative for dizziness. All other systems reviewed and are negative. OBJECTIVE: 01/15/2024 1:18 PM 02/08/2023 1:29 PM 08/17/2022 2:41 PM Vitals BMI 34.17 kg/m2 34.73 kg/m2 32.08 kg/m2 BSA (m2) 2.36 m2 2.38 m2 2.28 m2 Systolic 116 122 122 Diastolic 74 76 86 Heart Rate 80 72 87 SpO2 99 % 98 % Temp 98 F 98.2 F 97.7 F Resp 18 Height (in) 5' 11 5' 11 5' 11 Weight (lb) 245 249 230 Visit Report Report Report Report GENERAL EXAM: Physical Exam Vitals reviewed. Constitutional: General: He is not in acute distress. Appearance: Normal appearance. He is not ill-appearing. HENT: Head: Normocephalic and atraumatic. Nose: Nose normal. Mouth/Throat: Mouth: Mucous membranes are moist. Eyes: General: No scleral icterus. Extraocular Movements: Extraocular movements intact. Cardiovascular: Rate and Rhythm: Normal rate and regular rhythm. Heart sounds: No murmur heard. Pulmonary: Effort: Pulmonary effort is normal. Breath sounds: Normal breath sounds. Musculoskeletal: General: Normal range of motion. Cervical back: Normal range of motion and neck supple. Skin: General: Skin is warm and dry. Findings: No rash. Neurological: General: No focal deficit present. Mental Status: He is alert and oriented to person, place, and time. Mental status is at baseline. Psychiatric: Mood and Affect: Mood normal. Behavior: Behavior normal. Thought Content: Thought content normal. Judgment: Judgment normal. ADDITIONAL EXAM: documented in this encounter [facility] 12-19-2023 Evaluation + Plan note Diagnostic Tests PendingSemen Analysis Post Vasectomy 12/19/23Sperm Morphology 12/19/23 Future Scheduled TestsSemen Analysis Post Vasectomy 12/19/23 [facility] 12-19-2023 Evaluation + Plan note Future Scheduled TestsSemen Analysis Post Vasectomy 12/19/23 [facility] 09-26-2022 Hospital Discharge instructions Patient Education 09/26/2022 13:42:24 Testicular Self-Exam Testicular Self-Exam A self-examination of your testicles (testicular self-exam) involves looking at and feeling your testicles for abnormal lumps or swelling. Several things can cause swelling, lumps, or pain in your testicles. Some of these causes are: Injuries. Inflammation. Infection. Buildup of fluids around the testicle (hydrocele). Twisted testicles (testicular torsion). Testicular cancer. You may be at risk for testicular cancer if you have: ?An undescended testicle (cryptorchidism). ?A history of previous testicular cancer. ?A family history of testicular cancer. General tips and recommendations The testicles are easiest to examine after a warm bath or shower. They are more difficult to examine when you are cold because the muscles attached to the testicles retract and pull them up higher or into the abdomen. A normal testicle is egg-shaped and feels firm. It is smooth and not tender. It is normal to feel a firm, spaghetti-like cord at the back of your testicle. This is the spermatic cord. How to do a testicular self-exam 1.Stand and hold your penis away from your body. 2.Look at each testicle to check for changes in appearance, such as swelling or changes in size or shape. 3.Roll each testicle between your thumb and forefinger, feeling the entire testicle. Feel for: Lumps. Swelling. Discomfort. 4.Check the groin area between your abdomen and upper thighs on both sides of your body. Look and feel for any swelling or bumps that are tender. These could be enlarged lymph nodes. Contact a health care provider if: You find any bumps or lumps, such as a small, hard, pea-sized lump. You find swelling, pain, or soreness. You see or feel any other changes in your testicles. Summary A self-examination of your testicles (testicular self-exam) involves looking at and feeling your testicles for any changes. Check each of your testicles for lumps, swelling, or discomfort. These changes can be caused by many things. Check for swelling or tender bumps in your groin area between your lower abdomen and upper thighs. This information is not intended to replace advice given to you by your health care provider. Make sure you discuss any questions you have with your health care provider. Document Revised: 02/02/2020 Document Reviewed: 02/02/2020 [employer] Patient Education 2022 [employer]. Follow Up Care 09/25/2022 08:39:40 With:AMANDA RODRIGUEZ, Ahsan Pleitez, URL Address: [address] [place] [id number]- When: Unknown Comments:CHRISTEN [facility] 12-26-2021 Hospital Discharge instructions Patient Education 12/26/2021 10:42:17 Vasectomy, Care After Vasectomy, Care After This sheet gives you information about how to care for yourself after your procedure. Your health care provider may also give you more specific instructions. If you have problems or questions, contact your health care provider. What can I expect after the procedure? After your procedure, it is common to have: Mild pain, swelling, redness, or discomfort in your scrotum. Some blood coming from your incisions or puncture sites for one or two days. Blood in your semen. Follow these instructions at home: Medicines Take olnj-xcu-frgzgii and prescription medicines only as told by your health care provider. Avoid taking NSAIDs such as aspirin and ibuprofen, because these medicines can make bleeding worse. Activity For the first 2 days after surgery, avoid physical activity and exercise that require a lot of energy. Ask your health care provider what activities are safe for you. Do not participate in sports or perform heavy physical labor until your pain has improved, or until your health care provider says it is okay. Do not ejaculate for at least 1 week after the procedure, or as long as directed. You may resume sexual activity 7 10 days after your procedure, or when your health care provider approves. Use a different method of control (contraception) until you have had test results that confirm that there is no sperm in your semen. Scrotal support Use scrotal support, such as a jock strap or underwear with a supportive pouch, as needed for one week after your procedure. If you feel discomfort in your scrotum, you may remove the scrotal support to see if the discomfort is relieved. Sometimes scrotal support can press on the scrotum and cause or worsen discomfort. If your skin gets irritated, you may add some germ-free (sterile), fluffed bandages or a clean washcloth to the scrotal support. General instructions Put ice on the injured area: ?Put ice in a plastic bag. ?Place a towel between your skin and the bag. ?Leave the ice on for 20 minutes, 2 3 times a day. Check your incisions or puncture sites every day for signs of infection. Check for: ?Redness, swelling, or pain. ?Fluid or blood. ?Warmth. ?Pus or a bad smell. Leave stitches (sutures) in place. The sutures will dissolve on their own and do not need to be removed. Keep all follow-up visits as told by your health care provider. This is important because you will need a test to confirm that there is no sperm in your semen. Multiple ejaculations are needed to clear out sperm that were beyond the vasectomy site. You will need one test result showing that there is no sperm in your semen before you can resume unprotected sex. This may take 2 4 months after your procedure. Do not drive for 24 hours if you were given a sedative to help you relax. Contact a health care provider if: You have redness, swelling, or more pain around your incision or puncture site, or in your scrotum area in general. You have bleeding from your incision or puncture site. You have pus or a bad smell coming from your incision or puncture site. You have a fever. Your incision or puncture site opens up. Get help right away if: You develop a rash. You have difficulty breathing. Summary After your procedure it is common to have mild pain, swelling, redness, or discomfort in your scrotum. Avoid physical activity and exercise that requires a lot of energy for the first 2 days after surgery. Put ice on the injured area. Leave the ice on for 20 minutes, 2 3 times a day. Do not drive for 24 hours if you were given a sedative to help you relax. This information is not intended to replace advice given to you by your health care provider. Make sure you discuss any questions you have with your health care provider. Document Released: 09/15/2005 Document Revised: 02/08/2018 Document Reviewed: 05/25/2017 [employer] Patient Education 2020 [place]. 12/26/2021 10:42:16 Vasectomy Vasectomy Vasectomy is a procedure in which the tube that carries sperm from the testicle to the urethra (vas deferens) is tied. It may also be cut. The procedure blocks sperm from going through the vas deferens and penis during ejaculation. This ensures that sperm does not go into the vagina during sex. Vasectomy does not affect your sexual desire or performance, and does not prevent sexually transmitted diseases. Vasectomy is considered a permanent and very effective form of control (contraception). The decision to have a vasectomy should not be made during a stressful situation, such as after the loss of a or a divorce. You and your partner should make the decision to have a vasectomy when you are sure that you do not want children in the future. Tell a health care provider about: Any allergies you have. All medicines you are taking, including vitamins, herbs, eye drops, creams, and jfez-rcs-eckglxx medicines. Any problems you or family members have had with anesthetic medicines. Any blood disorders you have. Any surgeries you have had. Any medical conditions you have. What are the risks? Generally, this is a safe procedure. However, problems may occur, including: Infection. Bleeding and swelling of the scrotum. Allergic reactions to medicines. Failure of the procedure to prevent . There is a very small chance that the cut ends of the vas deferens may reconnect (recanalization), meaning that you could still make a woman . Pain in the scrotum that continues after healing from the procedure. What happens before the procedure? Ask your health care provider about: ?Changing or stopping your regular medicines. This is especially important if you are taking diabetes medicines or blood thinners. ?Taking hqqg-upy-wnjtraf medicines, vitamins, herbs, and supplements. ?Taking medicines such as aspirin and ibuprofen. These medicines can thin your blood. Do not take these medicines unless your health care provider tells you to take them. You may be asked to shower with a germ-killing soap. Plan to have someone take you home from the hospital or clinic. What happens during the procedure? To lower your risk of infection: ?Your health care team will wash or sanitize their hands. ?Hair may be removed from the surgical area. ?Your scrotum will be washed with soap. You will be given one or more of the following: ?A medicine to help you relax (sedative). You may be instructed to take this a few hours before the procedure. ?A medicine to numb the area (local anesthetic). Your health care provider will feel (palpate) for your vas deferens. To reach the vas deferens, one of two methods may be used: ?A very small incision may be made in your scrotum. ?A punctured opening may be made in your scrotum, without an incision. Your vas deferens will be pulled out of your scrotum, and may be: ?Tied off. ?Cut and possibly burned (cauterized) at the ends to seal them off. The vas deferens will be put back into your scrotum. The incision or puncture opening will be closed with absorbable stitches (sutures). The sutures will eventually dissolve and will not need to be removed after the procedure. The procedure may vary among health care providers and hospitals. What happens after the procedure? You will be monitored to make sure that you do not experience problems. You will be asked not to ejaculate for at least 1 week after the procedure, or as long as directed. You will need to use a different form of contraception for 2 4 months after the procedure, until you have test results confirming that there are no sperm in your semen. You may be given scrotal support to wear, such as a jock strap or underwear with a supportive pouch. Do not drive for 24 hours if you were given a sedative to help you relax. Summary Vasectomy is considered a permanent and very effective form of control (contraception). The procedure prevents sperm from being released during ejaculation. Your scrotum will be numbed with medicine (local anesthetic) for the procedure. After the procedure, you will be asked not to ejaculate for at least 1 week, or for as long as directed. You will also need to use a different form of contraception until your health care provider examines you and finds that there are no sperm in your semen. This information is not intended to replace advice given to you by your health care provider. Make sure you discuss any questions you have with your health care provider. Document Released: 05/19/2003 Document Revised: 08/30/2018 Document Reviewed: 05/25/2017 [employer] Patient Education 2020 [place]. Follow Up Care 11/28/2021 13:12:47 With:EVERETTE RODRIGUEZ, Jose W, URL Address: [address] [place] [address]- When:2 to 4 weeks [facility] 05-29-2021 Evaluation + Plan note Extrac jesse from: Title:ED Note Author:Felton Wharton MD Date: 1. Laceration of right thigh (S71.111A: Laceration without foreign body, right thigh, initial encounter) Orders: lidocaine, Injection, Misc, Once, Stop date 05/29/21 1:31:48 EDT, Physician Stop, 05/29/21 1:31:48 EDT lidocaine, 500 mg = 50 mL, Injection, SubCutaneous, Once, Stop date 05/29/21 1:36:00 EDT, Start date 05/29/21 1:36:00 EDT [facility]03-20-2022 Hospital Discharge instructions Patient Education 05/29/2021 02:00:20 Sutured Wound Care, Iqip-zl-Fdtx Sutured Wound Care Sutures are stitches that can be used to close wounds. Taking care of your wound properly can help prevent pain and infection. It can also help your wound to heal more quickly. Follow instructions from your doctor about how to care for your sutured wound. Supplies needed: Soap and water. A clean bandage (dressing), if needed. Antibiotic ointment. A clean towel. How to care for your sutured wound Keep the wound completely dry for the first 24 hours or as long as told by your doctor. After 24 48hours, you may shower or bathe as told by your doctor. Do not soak the wound or put the wound completely under water until the sutures have been removed. After the first 24 hours, clean the wound once a day, or as often as your doctor tells you to. Takethese steps: ?Wash the wound with soap and water. ?Rinse the wound with water. Make sure to wash all the soap off. ?Pat the wound dry with a clean towel. Do not rub the wound. After cleaning the wound, put a thin layer of antibiotic ointment on the wound as told by your doctor. This will help: ?Prevent infection. ?Keep the bandage from sticking to the wound. Follow instructions from your doctor about how to change your bandage: ?Wash your hands with soap and water. If you cannot use soap and water, use hand title camera operator. ?Change your bandage at least once a day, or as often as told by your doctor. If your dressing getswet or dirty, change it. ?Leave sutures, skin glue, or skin tape (adhesive) strips in place. They may need to stay in place for 2 weeks or longer. If tape strips get loose and curl up, you may trim the loose edges. Do not remove tape strips completely unless your doctor says it is okay. Check your wound every day for signs of infection. Watch for: ?Redness, swelling, or pain. ?Fluid or blood. ?Warmth. ?Pus or a bad smell. Have the sutures removed as told by your doctor. Follow these instructions at home: Medicines Take or apply oxfh-cos-czhaokq and prescription medicines only as told by your doctor. If you were prescribed an antibiotic medicine or ointment, take or apply it as told by your doctor.Do not stop using the antibiotic even if you start to feel better. General instructions Cover your wound with clothes or put sunscreen on when you are outside. Use a sunscreen of at least30 SPF. Do not scratch or pick at your wound. Avoid stretching your wound. Raise (elevate) the injured area above the level of your heart while you are sitting or lying down,if possible. Drink enough fluids to keep your pee (urine) clear or pale yellow. Keep all follow-up visits as told by your doctor. This is important. Contact a doctor if: You were given a tetanus shot and you have any of the following at the site where the needle went in: ?Swelling. ?Very bad pain. ?Redness. ?Bleeding. Your wound breaks open. You have redness, swelling, or pain around your wound. You have fluid or blood coming from your wound. Your wound feels warm to the touch. You have a fever. You notice something coming out of your wound, such as wood or glass. You have pain that does not get better with medicine. The skin near your wound changes color. You need to change your bandage often due to a lot of fluid, blood, or pus coming from the wound. You get a new rash. You get numbness around the wound. Get help right away if: You have very bad swelling around your wound. You have pus or a bad smell coming from your wound. Your pain suddenly gets worse and is very bad. You have painful lumps near your wound or anywhere on your body. You have a red streak going away from your wound. The wound is on your hand or foot, and: ?You cannot move a finger or toe as you used to do. ?Your fingers or toes look pale or blue. ?You have numbness that spreads down your hand, foot, fingers, or toes. Summary Sutures are stitches that are used to close wounds. Taking care of your wound properly can help prevent pain and infection. Keep the wound completely dry for the first 24 hours or for as long as told by your doctor. After 24 48 hours, you may shower or bathe as directed by your doctor. This information is not intended to replace advice given to you by your health care provider. Make sure you discuss any questions you have with your health care provider. Document Released: 08/14/2008 Document Revised: 02/08/2018 Document Reviewed: 04/03/2017 [employer] Patient Education 2020 [employer] Suture removal in 10 to 14 days upon removal it should be reinforced with tape Follow Up Care 05/29/2021 00:42:43 With:DMITRIY ARANGO Address: [address] [place], [place] [address] , [place] [address]- Business (1) [facility] Appointment Date:02/08/2022 08:45:00 AM Scheduled Provider: Location:[facility] Appointment Type:Urology CALL PAT FT Appointment Date:02/15/2022 08:30:00 AM Scheduled Provider: Location:[facility] Appointment Type:Urology FT Appointment Date:02/27/2022 09:15:00 AM Scheduled Provider:Jose LUNA MD [facility]O Office Visit Appointment Date:04/03/2022 08:45:00 AM Scheduled Provider:Jose LUNA MD [facility] App[facility] Type:URO Office Visit [facility] Evaluation + Plan note Future Appointments Appointment Date:04/27/2022 10:30:00 AM Scheduled Provider:Jose LUNA MD [facility] [place] Appointment Type:URO Procedure 30 min Appointment Date:05/15/2022 09:15:00 AM Scheduled Provider:Jose LUNA MD [facility] App[facility]ments Appointment Date:05/15/2022 03:00:00 PM Scheduled Provider:Jose LUNA MD Location:[facility] Diagnosis Routine general medical examination at a health care facility- Primary Obesity (BMI 30-39.9) Tick bite, unspecified site, sequela [facility] N[facility] No data available for this section [facility] No data available for this section [facility] No data available for this section [facility] Summary Purpose Family History No Family History Records FoundNo Family History Records Found No data available for this section No Family History Records FoundNo Family History Records FoundNo Family History Records Found No data available for this section No Family History Records Found Advance Directives No Advanced Directives Records FoundNo Advanced Directives Records FoundNo Advanced Directives Records FoundNo Advanced Directives Records FoundNo Advanced Directives Records FoundNo Advanced Directives Records Found Assessments No Assessments Information Available Additional Source Comments (unrecognized sect ion and content) No Status Records FoundNo Status Records FoundNo Status Records FoundNo Status Records FoundNo Status Records FoundNo Status Records Found INFORMATION SOURCE (unrecogn ized section and content) DATE CREATED AUTHOR 12/02/2018 [facility] DATE CREATED AUTHOR AUTHOR'S ORGANIZ ATION 06/23/2021 [facility] dical Specialist DATE CREATED AUTHOR AUTHOR'S ORGANIZ ATION 12/27/2023 [facility] DATE CREATED AUTHOR AUTHOR'S ORGANIZ ATION 01/02/2024 [facility] DATE CREATED AUTHOR AUTHOR'S ORGANIZ ATION 01/17/2024 [facility] dical Specialists EPIC DATE CREATED AUTHOR AUTHOR'S ORGANIZ ATION 02/03/2024 [facility] Patient Care team informatio n (unrecognized section and content) [facility] Therapist Relationship Specialty Start Date End Date Dmitriy Arango DO [address] [place] [address] PCP - General Family Medicine 08/17/22 Dmitriy Arango, [address] [place] [address] PCP - [employer] 04/12/23 Reason for Visit (unrecogniz ed section and content) Reason Comments Annual Exam FOR RECORDS PERTAINING TO PATIENTS WHO ARE OR HAVE BEEN ENROLLED IN A CHEMICAL DEPENDENCY/SUBSTANCEABUSE PROGRAM, SOME INFORMATION MAY BE OMITTED. This clinical summary was aggregated from multiple sources. Caution should be exercised in using it in the provision of clinical care. This summary normalizes information from multiple sources, and as a consequence, information in this document may materially change the coding, format and clinical context of patient data. In addition, data may be omitted in some cases. CLINICAL DECISIONS SHOULD BE BASED ON THE PRIMARY CLINICAL RECORDS. [facility]. provides no warranty or guarantee of the accuracy or completeness of information in this document.
--- NOTE | 2024-02-05 13:39 | US_ITS ---
The [address] [address] Patient Name: SOPHIA HOWELL MRN: [id number] date: 1990 Sex: M Assigned Patient Location: Current Patient Location: Accession/Order Number: [id number] Exam Date: 02/05/2024 13:42 Report Date: 02/07/2024 06:32 At the request of: PEDRO LUIS BYNUM Procedure: US scrotum EXAMINATION: US scrotum HISTORY: Testicular Pain ; right testicular pain and lump for one week COMPARISON: No relevant comparison available. TECHNIQUE: High-resolution sonographic imaging of the scrotum and contents was performed. FINDINGS: RIGHT: TESTICLE: Homogeneous echotexture. No visible mass. Color Doppler flow is present. Spectral Doppler demonstrates normal arterial waveform and flow, 5/2 cm/s (PSV/EDV), and normal venous wave flow averaging 1 cm/s. EPIDIDYMIS: Normal size and echogenicity. OTHER: Large varicocele. LEFT: TESTICLE: Homogeneous echotexture. No visible mass. Color Doppler flow is present. Spectral Doppler demonstrates arterial waveform and flow, 3/2 cm/s (PSV/EDV), and normal venous flow averaging 1 cm/s. EPIDIDYMIS: Slightly heterogeneous echotexture. Contains a 6 mm cyst within head of epididymis. No increased vascularity. OTHER: Varicocele. US/US scrotum IMPRESSION: 1. Patient's right side palpable lump and area of tenderness corresponds to a large varicocele. No appreciable thrombosed vessels. 2. Left varicocele. 3. No acute or suspicious abnormality of the testicles or epididymides. Electronically authenticated by: FER ANDERSEN Date: 02/07/2024 06:32
== END 2024-02-05 13:29 | disposition home or self-care (01) ==
PROVIDERS: Family Provider Family Medicine; PCP Family Medicine; Visit Provider Nurse Practitioner
DX: N50.819 Testicular pain, unspecified (principal); I86.1 Scrotal varices
CPT/HCPCS: 76870